=== PATIENT | male | born 1960 | race Two or more races ===

== ENCOUNTER 2019-03-17 04:46 | Inpatient (IN) | payer OTHER ==
[~2019-03-17] VITALS: Ht 157.5 cm; Wt 64.1 kg
[2019-03-17] MEDS ORDERED: METFORMIN HCL850 M1 ORAL (04:59)
[2019-03-17] MEDS ORDERED: ATORVASTATIN CA80 MG ORAL (04:59)
[2019-03-17 05:00] VITALS: BP 246/110
[2019-03-17] MEDS ORDERED: Morphine Sulfate 4mg/ml Inj (IV USE ONLY) IVP ONE (05:00)
[2019-03-17] MEDS ORDERED: LISINOPRIL10 MG ORAL (05:00)
[2019-03-17] MEDS ORDERED: METOPROLOL SUC100 MG ORAL (05:00)
[2019-03-17] MEDS ORDERED: Aspirin Baby 81mg ORAL ONE (05:00)
[2019-03-17] MEDS ORDERED: Metoprolol 5mg/5ml Inj IVP ONE (05:00)
--- NOTE | 2019-03-17 05:00 | NUR ---
ED Nurse Note: Patient walked into ED accompanied by c/o new onset left sided chest pain radiating to his upper back. rates his pain a 8/10 pain. BP 246/110. Pt c/o nausea. Has hx of heart attack last month, stent placed last 2008. No SOB. Breathing even and unlabored. Afebrile. Brother at bedside.
--- NOTE | 2019-03-17 05:05 | NUR ---
ED Nurse Note: IV line established. Blood collected and sent to lab.
--- NOTE | 2019-03-17 05:06 | Emergency Room Report ---
History of Present Illness General Chief Complaint: Chest Pain Source: Patient Present Illness HPI Disclaimer: Please note that this report is being documented using [employer] technology. This can lead to erroneous entry secondary to incorrect interpretation by the dictating instrument. HPI: 58-year-old male with a history of CAD status post stent 2008, hypertension , hyperlipidemia, diabetes presents for evaluation of chest pain. Symptom onset was probably 30 minutes ago. Chest pain woke him from sleep. Is over the left chest wall nonradiating. Associated with nausea, shortness of breath and diaphoresis. Pain is been constant since onset. Arrives with elevated blood pressures with systolics greater than 240 mmHg. States is similar sensation to his prior IA. Also complaining of an occipital headache and pressure over the back of his neck. Also complaining of pain over the left side of the mid back PMH: Hypertension, hyperlipidemia, diabetes, CAD PSH: The extent Allergies: None Social Hx: Denies smoking Allergies: Coded Allergies: No Known Allergies (Unverified , 03/17/19) Nursing Documentation-PMH Past Medical History: No History, Except For Hx Hypertension: Yes Hx Diabetes: Yes Review of Systems All Other Systems: negative except mentioned in HPI Physical Exam Vital Signs Date Time Temp Pulse Resp B/P (MAP) Pulse Ox O2 Delivery O2 Flow Rate FiO2 03/17/19 04:54 97.3 109 19 246/110 (155) 100 Room Air General: Awake and alert, anxious and uncomfortable appearing, hypertensive HEENT: NC/AT. EOMI. Neck: Supple, trachea midline Chest Wall: No tenderness, no deformity Cardiovascular: Tachycardic. S1 and S2 normal. No murmur appreciated Resp: Normal work of breathing. No cough, wheezing or crackles appreciated Abdomen: Abdomen is soft, nondistended. Nontender Skin: Intact. No abrasions, laceration or rash over the exposed skin MSK: Normal tone and bulk. Moving all extremities. No obvious deformity. Neuro: Awake and alert. Mentating appropriately. Medical Decision Making Diagnostic Impression: Primary Impression: Chest pain Additional Impression: Hypertensive urgency ER Course 58-year-old male with a history of CAD status post stent 2008 presents for evaluation of chest pain waking up from sleep approximately 30 minutes ago. Differential includes was not limited to ACS, angina, hypertensive urgency, hypertensive emergency, pneumothorax, pneumonia, bronchospasm, GERD. EKG obtained on arrival shows a right bundle branch block pattern in the precordial leads however there a deep ST segment depressions in the inferior and lateral portions. Will discuss with nearby cardiac center as there is elevation in aVR. Labs are pending. He was given metoprolol, aspirin, morphine Laboratory Tests Test 03/17/19 04:53 White Blood Count 9.1 K/UL (4.8-10.8) Red Blood Count 3.77 M/UL (4.70-6.10) L Hemoglobin 11.8 G/DL (14.2-18.0) L Hematocrit 34.3 % (42.0-52.0) L Mean Corpuscular Volume 91 FL (80-99) Mean Corpuscular Hemoglobin 31.3 PG (27.0-31.0) H Mean Corpuscular Hemoglobin Concent 34.4 G/DL (32.0-36.0) Red Cell Distribution Width 11.8 % (11.6-14.8) Platelet Count 288 K/UL (150-450) Mean Platelet Volume 6.6 FL (6.5-10.1) Neutrophils (%) (Auto) 65.7 % (45.0-75.0) Lymphocytes (%) (Auto) 21.6 % (20.0-45.0) Monocytes (%) (Auto) 8.1 % (1.0-10.0) Eosinophils (%) (Auto) 3.5 % (0.0-3.0) H Basophils (%) (Auto) 1.2 % (0.0-2.0) Sodium Level 139 MMOL/L (136-145) Potassium Level 4.0 MMOL/L (3.5-5.1) Chloride Level 104 MMOL/L (98-107) Carbon Dioxide Level 27 MMOL/L (21-32) Anion Gap 8 mmol/L (5-15) Blood Urea Nitrogen 24 mg/dL (7-18) H Creatinine 1.3 MG/DL (0.55-1.30) Estimate Glomerular Filtration Rate 56.5 mL/min (>60) Glucose Level 273 MG/DL (74-106) H Calcium Level 8.7 MG/DL (8.5-10.1) Phosphorus Level Pending Magnesium Level Pending Total Bilirubin 0.3 MG/DL (0.2-1.0) Aspartate Amino Transferase (AST) 18 U/L (15-37) Alanine Aminotransferase (ALT) 21 U/L (12-78) Alkaline Phosphatase 177 U/L (46-116) H Troponin I 0.000 ng/mL (0.000-0.056) Total Protein 7.5 G/DL (6.4-8.2) Albumin 3.0 G/DL (3.4-5.0) L Globulin 4.5 g/dL Albumin/Globulin Ratio 0.7 (1.0-2.7) L EKG Diagnostic Results EKG Time: 04:55 Rhythm: NSR Other Impression Sinus rhythm, slight right axis, possible ST elevation in aVR with right bundle branch block pattern in the precordial leads and ST depression in the inferior lateral leads Rhythm Strip Diag. Results Rhythm Strip Time: 04:55 EP Interpretation: yes Rate: 90s Rhythm: NSR Chest X-Ray Diagnostic Results Chest X-Ray Diagnostic Results : # of Views/Limited/Complete: 1 View Indication: Chest Pain EP Interpretation: Yes Interpretation: no consolidation, no effusion, no pneumothorax, no acute cardiopulmonary disease Impression: No acute disease Electronically Signed by: Electronically signed by Dr. Sid Tran Reevaluation Time: 05:41 Last Vital Signs Date Time Temp Pulse Resp B/P (MAP) Pulse Ox O2 Delivery O2 Flow Rate FiO2 03/17/19 04:54 97.3 109 19 246/110 (155) 100 Room Air Reevaluation Impression Chest x-ray unremarkable. Initial troponin is negative. Labs so far otherwise unremarkable. Will require a 3-hour troponin but the patient will be admitted for hypertensive urgency. His chest pain is currently a 2/10. Systolic pressures are down to 175 after receiving Nitropaste, metoprolol, morphine. He is received aspirin as well. Discussed with patient's transitional care nurse per his health plan, they are recommending admission to our hospital for chest pain and hypertension. Patient is agreeable to this treatment plan. Repeat EKG is largely unchanged. Some loss of R wave progression in the lateral leads V4 through V6 but overall morphology remains consistent. Repeat troponin is pending. Will admit to telemetry under panel physician. Disposition: ADMITTED INPATIENT Condition: Serious Referrals: NAKUL JOAQUIN,REFERRING (PCP) Sid Tran MD Mar 17, 2019 05:06
[2019-03-17 05:11] LABS: BASOPHILS % (AUTO) 1.2 % (0.0-2.0); EOSINOPHILS % (AUTO) 3.5 % (0.0-3.0); HEMATOCRIT 34.3 % (42.0-52.0); HEMOGLOBIN 11.8 G/DL (14.2-18.0); LYMPHOCYTES % (AUTO) 21.6 % (20.0-45.0); MEAN CORPUSCULAR VOLUME 91 FL (80-99); MONOCYTES % (AUTO) 8.1 % (1.0-10.0); NEUTROPHILS % (AUTO) 65.7 % (45.0-75.0); PLATELET COUNT 288 K/UL (150-450); RED BLOOD COUNT 3.77 M/UL (4.70-6.10); RED CELL DISTRIBUTION WIDTH 11.8 % (11.6-14.8); WHITE BLOOD COUNT 9.1 K/UL (4.8-10.8)
[2019-03-17] MEDS ORDERED: Nitroglycerin 2% oint pkt TOPIC ONE (05:15)
--- NOTE | 2019-03-17 05:15 | NUR ---
ED Nurse Note: Xray at bedside.
[2019-03-17 05:28] LABS: ANION GAP 8 mmol/L (5-15); BLOOD UREA NITROGEN 24 mg/dL (7-18); CALCIUM 8.7 MG/DL (8.5-10.1); CARBON DIOXIDE 27 MMOL/L (21-32); CHLORIDE 104 MMOL/L (98-107); CREATININE 1.3 MG/DL (0.55-1.30); SODIUM 139 MMOL/L (136-145)
[2019-03-17 05:32] LABS: ALANINE AMINOTRANSFERASE 21 U/L (12-78); ALBUMIN/GLOBULIN RATIO 0.7 (1.0-2.7); ALKALINE PHOSPHATASE 177 U/L (46-116); ASPARTATE AMINO TRANSFERASE 18 U/L (15-37); BILIRUBIN,TOTAL 0.3 MG/DL (0.2-1.0)
[2019-03-17 05:54] LABS: PHOSPHORUS 3.5 MG/DL (2.5-4.9)
[2019-03-17 06:09] VITALS: BP 144/76
--- NOTE | 2019-03-17 06:43 | NUR ---
ED Nurse Note: Repeat troponin done and sent to lab.
--- NOTE | 2019-03-17 07:09 | NUR ---
HAND-OFF: Report given to Yvonne HAYWOOD. Endorsed plan of care. No new order at this time.
--- NOTE | 2019-03-17 07:44 | NUR ---
ED Nurse Note: Reports given to YOBANY Castro
[2019-03-17 08:00] VITALS: BP 157/66
--- NOTE | 2019-03-17 08:16 | NUR ---
NURSE NOTES: HANDOFF RECEIVED FROM SE MULU LIU RN. PATIENT ARRIVED TO THE FLOOR. PLACED ON JAVA J2EE LEAD, ORIENTED TO ROOM AND CALL LIGHT. BED IN THE LOW AND LOCKED POSITION WITH CALL LIGHT WITHIN REACH. VITALS STABLE. WILL CONTINUE TO MONITOR PATIENT.
[2019-03-17] MEDS ORDERED: Nitroglycerin Subl 0.4mg tab SL PRN (08:30)
[2019-03-17] MEDS ORDERED: Lisinopril 10mg tab ORAL SCH (09:00)
--- NOTE | 2019-03-17 09:45 | History and Physical Report ---
DATE OF ADMISSION: 03/17/2019 REASON FOR ADMISSION: 1. Hypertensive urgency. 2. Chest pain. HISTORY OF PRESENT ILLNESS: The patient is a 58-year-old gentleman with known hypertension, hyperlipidemia, and diabetes, who was admitted through the emergency room overnight for further evaluation and care for chest pain. The patient states he has not been taking his medications for several days and started developing headaches and neck pain with extremely high blood pressure. As such, he presented to the emergency room for further evaluation and care with systolic blood pressure was 240. He states that he had similar sensation prior to his previous TX. PAST MEDICAL HISTORY: 1. Hypertension. 2. Hyperlipidemia. 3. Diabetes mellitus. 4. Coronary artery disease. PAST SURGICAL HISTORY: PCI. ALLERGIES: No known drug allergies. SOCIAL HISTORY: Denies any tobacco, alcohol, or illicit drug use. FAMILY HISTORY: Positive for hypertension and diabetes. PHYSICAL EXAMINATION: VITAL SIGNS: Blood pressure 157/72, respiratory rate 13, pulse 80, temperature 97.6, and 99% oxygen saturation on room air. GENERAL: The patient is awake and alert, not in distress. HEENT: Extraocular muscles are intact. No lymphadenopathy. Oropharyngeal mucosa is clear, dry, and intact. CARDIOVASCULAR: S1, S2. No rubs or gallops. Regular rate. PULMONARY: Clear to auscultation bilaterally. No rales, rhonchi, or wheezes. ABDOMEN: Nondistended and nontender. EXTREMITIES: No edema noted. LABORATORY DATA: Labs dated 03/17/2019 - white cell count 9.1, platelet count 288,000, and hemoglobin 11.8. Sodium 139, potassium 4, creatinine 1.3, phosphorus 3.5, magnesium 2.4. Troponin 0. ASSESSMENT AND PLAN: 1. Acute coronary syndrome, chest pain secondary to hypertensive urgency. At this time, cardiology has been consulted for further evaluation and management. We will continue aspirin and beta eve. 2. Hypertensive urgency. The patient is noncompliant with medications. We will re-initiate home dose medications. 3. Diabetes mellitus. We will continue low-carbohydrate diet with insulin and metformin. We are monitoring Accu-Cheks. 4. Hyperlipidemia. The patient is on Lipitor. 5. Headache could be secondary to hypertensive urgency. We will continue to monitor neck and headache pain with improvement in blood pressure. If further testing warrants, we will proceed. 6. DVT prophylaxis with Lovenox. 7. GI prophylaxis with famotidine. Esdras Crawley MD DR: BEBO JOB#: [id number] CC:
[2019-03-17] MEDS: Metoprolol Succinate XL 100mg tab ORAL SCH (09:52)
[2019-03-17] MEDS: Aspirin Baby 81mg ORAL SCH (09:53)
[2019-03-17] MEDS: Enoxaparin 40mg Inj SUBQ SCH (09:55)
--- NOTE | 2019-03-17 09:55 | Cardiac Electrophysiology PN ---
Subjective Subjective [id number] Objective Last 24 Hour Vital Signs Date Time Temp Pulse Resp B/P (MAP) Pulse Ox O2 Delivery O2 Flow Rate FiO2 03/17/19 08:00 97.3 81 19 157/66 (96) 97 03/17/19 07:45 97.6 80 13 157/72 99 Room Air 03/17/19 06:09 98.5 78 17 144/76 97 Room Air 03/17/19 05:34 97.3 03/17/19 05:15 246/110 03/17/19 05:02 125 246/110 03/17/19 05:00 109 19 Room Air 03/17/19 05:00 97.3 109 19 246/110 100 Room Air 03/17/19 04:54 97.3 109 19 246/110 (155) 100 Room Air Intake and Output 03/16/19 03/17/19 19:00 07:00 Intake Total 100 ml Balance 100 ml Intake Oral 100 ml Laboratory Tests Test 03/17/19 04:53 03/17/19 06:41 White Blood Count 9.1 K/UL (4.8-10.8) Red Blood Count 3.77 M/UL (4.70-6.10) L Hemoglobin 11.8 G/DL (14.2-18.0) L Hematocrit 34.3 % (42.0-52.0) L Mean Corpuscular Volume 91 FL (80-99) Mean Corpuscular Hemoglobin 31.3 PG (27.0-31.0) H Mean Corpuscular Hemoglobin Concent 34.4 G/DL (32.0-36.0) Red Cell Distribution Width 11.8 % (11.6-14.8) Platelet Count 288 K/UL (150-450) Mean Platelet Volume 6.6 FL (6.5-10.1) Neutrophils (%) (Auto) 65.7 % (45.0-75.0) Lymphocytes (%) (Auto) 21.6 % (20.0-45.0) Monocytes (%) (Auto) 8.1 % (1.0-10.0) Eosinophils (%) (Auto) 3.5 % (0.0-3.0) H Basophils (%) (Auto) 1.2 % (0.0-2.0) Sodium Level 139 MMOL/L (136-145) Potassium Level 4.0 MMOL/L (3.5-5.1) Chloride Level 104 MMOL/L (98-107) Carbon Dioxide Level 27 MMOL/L (21-32) Anion Gap 8 mmol/L (5-15) Blood Urea Nitrogen 24 mg/dL (7-18) H Creatinine 1.3 MG/DL (0.55-1.30) Estimat Glomerular Filtration Rate 56.5 mL/min (>60) Glucose Level 273 MG/DL (74-106) H Calcium Level 8.7 MG/DL (8.5-10.1) Phosphorus Level 3.5 MG/DL (2.5-4.9) Magnesium Level 2.4 MG/DL (1.8-2.4) Total Bilirubin 0.3 MG/DL (0.2-1.0) Aspartate Amino Transf (AST/SGOT) 18 U/L (15-37) Alanine Aminotransferase (ALT/SGPT) 21 U/L (12-78) Alkaline Phosphatase 177 U/L (46-116) H Troponin I 0.000 ng/mL (0.000-0.056) 0.001 ng/mL (0.000-0.056) Total Protein 7.5 G/DL (6.4-8.2) Albumin 3.0 G/DL (3.4-5.0) L Globulin 4.5 g/dL Albumin/Globulin Ratio 0.7 (1.0-2.7) L Microbiology Date/Time Source Procedure Growth Status 03/17/19 07:28 Rectum Received Steven Garces MD Mar 17, 2019 09:55
[2019-03-17] MEDS: Morphine Sulfate 2mg/ml Inj(IV/IM USE ONLY) IVP PRN ×3 (09:58→19:31)
[2019-03-17] MEDS ORDERED: cloNIDine 0.2mg Tab ORAL PRN (10:00)
[2019-03-17] MEDS ORDERED: Lexiscan 0.4mg/5ml syringe IV SCH (10:00)
--- NOTE | 2019-03-17 10:00 | Diagnostic Imaging Report ---
Indication: Chest pain Comparison: None A single view chest radiograph was obtained. Findings: Cardiomediastinal appearance is within normal limits for age. The lungs are clear. Pulmonary vascularity is appropriate. The diaphragmatic contour is smooth and costophrenic angles are sharp. No pleural effusions are identified. The bones are unremarkable. Impression: No acute findings
[2019-03-17] MEDS ORDERED: Lexiscan 0.4mg/5ml syringe IV PRN (10:15)
[2019-03-17] MEDS: Lisinopril 10mg tab ORAL SCH ×2 (11:13→17:27)
[2019-03-17 11:52] VITALS: BP 142/72
[2019-03-17] MEDS: NovoLOG Insulin Flexpen SUBQ SCH ×3 (11:55→20:47)
--- NOTE | 2019-03-17 15:00 | Consultation ---
DATE OF CONSULTATION: 03/17/2019 CARDIOLOGY CONSULTATION CONSULTING PHYSICIAN: Steven Garces M.D. REFERRING PHYSICIAN: Esdras Crawley M.D. REASON FOR CONSULTATION: Chest pain. HISTORY OF PRESENT ILLNESS: The patient is a 58-year-old gentleman with history of hypertension, diabetes, and hyperlipidemia, who states that he had a stent in 2008 at [facility]. The patient presented to the emergency room complaining of chest pain lasting for 30 minutes of waking up from sleep. He also has nausea and diaphoresis. The patient also checked his blood pressure at home and noticed it has been more than 240s. The patient presented to the emergency room and a Cardiology consultation was obtained for further evaluation. In the ER, blood pressure was 246/110 with a pulse of 109. At the time of my evaluation, the patient denies any chest pain or shortness of breath. REVIEW OF SYSTEMS: Negative other than what was mentioned in history of present illness. PAST MEDICAL HISTORY: As mentioned above. FAMILY HISTORY: Noncontributory. SOCIAL HISTORY: He lives at home. Does not smoke or drink alcohol. PHYSICAL EXAMINATION: VITAL SIGNS: Show blood pressure of 157/66, pulse is 81, respirations 18, temperature 97.3. HEAD AND NECK: Shows no JVD. LUNGS: Clear. CARDIOVASCULAR: Regular S1 and S2 with no gallop or murmur. ABDOMEN: Soft. EXTREMITIES: No pitting edema. LABORATORY AND DIAGNOSTIC DATA: His labs show white count of 9.7, hemoglobin 11.8, hematocrit 34.3, and platelet count is 288. Sodium 139, potassium 4.0, BUN of 24, creatinine 1.3, glucose 273. Troponin negative x2. His EKG showed sinus rhythm with complete right bundle-branch block. ASSESSMENT AND PLAN: 1. Chest pain with history of coronary artery disease, history of questionable prior stent placement. The patient will be ruled out for myocardial infarction by serial cardiac enzymes. His EKG shows sinus rhythm with right bundle-branch block and left anterior fascicular block. Keep the patient on Lipitor 80 mg daily, aspirin 81 mg daily, and Toprol 100 mg daily. We will schedule the patient for nuclear stress test for further evaluation. 2. Essential hypertension, on Toprol-XL 100 mg daily. Increase lisinopril to 10 mg b.i.d. and add p.r.n. clonidine to his medical regimen. An echocardiogram will also be ordered for further management. 3. Diabetes. 4. Hyperlipidemia, on Lipitor. Thank you very much for allowing me to participate in the care of this patient. Please do not hesitate to contact me for any questions regarding my evaluation. Steven Garces M.D. DR: FRANSICO JOB#: [id number] CC:
--- NOTE | 2019-03-17 15:25 | Cardiology Report ---
APPROVED REPORT EXAM: Two-dimensional and M-mode echocardiogram with Doppler and color Doppler. INDICATION Chest Pain M-Mode DIMENSIONS IVSd1.0 (0.7-1.1cm)Left Atrium (MM)3.9 (1.6-4.0cm) LVDd3.9 (3.5-5.6cm)Aortic Root3.0 (2.0-3.7cm) PWd1.0 (0.7-1.1cm)Aortic Cusp Exc.1.8 (1.5-2.0cm) LVDs2.2 (2.5-4.0cm) PWs1.6 cm Normal left ventricular chamber size, normal systolic function and wall motion. Left ventricular ejection fraction estimated to be 60-65 %. No evidence of pericardial effusion. Left atrial size at upper limits of normal. Right cardiac chamber sizes are within normal limits. Focal aortic valve sclerosis with adequate cusp excursion. Thickened mitral valve leaflets with normal excursion. Mitral annulus and aortic root calcification. Normal pulmonic valve structure. Normal tricuspid valve structure. IVC at normal size with physiologic collapse. A color flow and spectral Doppler study was performed and revealed: Trace mitral regurgitation. Mitral diastolic velocities suggest reduced left ventricular relaxation c/w mild LV diastolic dysfunction (Grade I). Trace tricuspid regurgitation. Tricuspid systolic velocities suggests peak right ventricular systolic pressure of 25 mmHg. Trace pulmonic regurgitation present.
[2019-03-17 16:00] VITALS: BP 117/72
--- NOTE | 2019-03-17 16:11 | NUR ---
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 97.3 HR 109 RR 19 B/P 246/110 BUN 24 CR 1.3 TROP 0.000 CXR= NEGATIVE 2D ECHO= EF 60-65% IS: ASA PO MORPHINE SULFATE IV LOPRESSOR IV NITRO TOPICAL PLACED ON OBSERVATION OBSERVATION STATUS DCP RETURN HOME Addendum: 03/17/19 at 1616 by ERICA FAJARDO RN RN PT ADMITTED IN PATIENT.
--- NOTE | 2019-03-17 17:29 | NUR ---
NURSE NOTES: PATIENT SAYS PAIN IS NOW 9/10, MORPHINE NOT DUE UNTIL 7:40 PATIENT SAYS THE PAIN IS IN HIS BACK AND NECK. GAVE NITROGLYCERINE PAIN MAY BE REFERRED ANGINA PAIN. PATIENT STATES HE HAS A HISTORY OF ANGINA.
--- NOTE | 2019-03-17 19:27 | NUR ---
HAND-OFF: Report given to YOBANY HARRIS.
--- NOTE | 2019-03-17 19:30 | NUR ---
NURSE NOTES: Received patient from day shift RN. Patient in bed, on room air, no signs of respiratory distress. Bed in low position, locked, bed alarm on, call light within reach. 20 gauge iv on right ac intact, patent, no signs of infiltration.
[2019-03-17 20:00] VITALS: BP 106/64
--- NOTE | 2019-03-17 20:00 | NUR ---
NURSE NOTES: Patient was given morphine for pain earlier, patient states he feels better, 5/10. Explained to patient that he cannot have any caffeine, tea, or chocolate because he will be having lexiscan test in morning. He also will not be able to eat anything after midnight. Patient verbalized understanding.
[2019-03-17] MEDS: Atorvastatin 80mg tab ORAL SCH (20:41)
[2019-03-18] VITALS (7 sets, daily range): BP systolic 118–174; BP diastolic 60–87
[2019-03-18] MEDS: Morphine Sulfate 2mg/ml Inj(IV/IM USE ONLY) IVP PRN ×3 (02:52→20:24)
[2019-03-18] MEDS: NovoLOG Insulin Flexpen SUBQ SCH ×4 (06:30→20:27)
[2019-03-18 06:35] LABS: BASOPHILS % (AUTO) 0.8 % (0.0-2.0); EOSINOPHILS % (AUTO) 2.4 % (0.0-3.0); HEMATOCRIT 28.1 % (42.0-52.0); HEMOGLOBIN 9.5 G/DL (14.2-18.0); LYMPHOCYTES % (AUTO) 23.8 % (20.0-45.0); MEAN CORPUSCULAR VOLUME 93 FL (80-99); MONOCYTES % (AUTO) 8.8 % (1.0-10.0); NEUTROPHILS % (AUTO) 64.2 % (45.0-75.0); PLATELET COUNT 235 K/UL (150-450); RED BLOOD COUNT 3.02 M/UL (4.70-6.10); RED CELL DISTRIBUTION WIDTH 11.9 % (11.6-14.8)
[2019-03-18 07:17] LABS: ANION GAP 9 mmol/L (5-15); BLOOD UREA NITROGEN 30 mg/dL (7-18); CALCIUM 8.2 MG/DL (8.5-10.1); CARBON DIOXIDE 26 MMOL/L (21-32); CHLORIDE 106 MMOL/L (98-107); CREATININE 1.8 MG/DL (0.55-1.30); POTASSIUM 4.6 MMOL/L (3.5-5.1); SODIUM 141 MMOL/L (136-145)
--- NOTE | 2019-03-18 07:30 | NUR ---
HAND-OFF: Report given to Carli HAYWOOD. Plan of care endorsed.
--- NOTE | 2019-03-18 07:35 | NUR ---
NURSE NOTES: Received patient in bed awake and alert. no complain of pain or discomfort. NPO for olga scan today. patient is aware of the procedure. fall precautions in place. call maciel within patients reach will follow.
--- NOTE | 2019-03-18 08:40 | Nephrology Progress Note ---
Assessment/Plan Assessment/Plan: ASSESSMENT AND PLAN: 1. Acute coronary syndrome, chest pain secondary to hypertensive urgency. - stress test today 2. Hypertensive urgency. The patient is noncompliant with medications. - BP improved, monitor 3. Diabetes mellitus. -continue low-carbohydrate diet with insulin and metformin. 4. Hyperlipidemia. The patient is on Lipitor. 5. Headache could be secondary to hypertensive urgency. -continue to monitor neck and headache pain with improvement in blood pressure. 6. DVT prophylaxis with Lovenox. 7. GI prophylaxis with famotidine. 8. TARYN- monitor Cr as increased post increase in Lisinopril Subjective Date patient seen: Mar 18, 2019 Time patient seen: 08:38 Allergies: Coded Allergies: No Known Allergies (Unverified , 03/17/19) Subjective Patient having stress test today Objective Last 24 Hour Vital Signs Date Time Temp Pulse Resp B/P (MAP) Pulse Ox O2 Delivery O2 Flow Rate FiO2 03/18/19 08:00 98.6 66 19 159/73 (101) 100 03/18/19 05:33 69 118/73 (88) 03/18/19 04:22 174/87 03/18/19 04:00 98.5 78 18 174/87 (116) 99 03/18/19 04:00 73 03/18/19 00:00 98.9 78 18 139/78 (98) 98 03/18/19 00:00 75 03/17/19 21:00 Room Air Room Air 03/17/19 21:00 Room Air Room Air 03/17/19 20:00 74 03/17/19 20:00 97.2 54 18 106/64 (78) 97 03/17/19 17:27 117/72 03/17/19 16:00 75 03/17/19 16:00 99.1 72 18 117/72 (87) 94 03/17/19 12:00 79 03/17/19 11:52 99.5 82 18 142/72 (95) 99 03/17/19 11:13 155/76 03/17/19 10:35 Room Air 03/17/19 09:53 157/66 03/17/19 09:52 81 157/66 03/17/19 09:00 Room Air Intake and Output 03/17/19 03/18/19 19:00 07:00 Intake Total 600 ml Balance 600 ml Intake Oral 600 ml # Voids 3 Laboratory Tests 03/18/19 05:37: White Blood Count 8.0, Red Blood Count 3.02L, Hemoglobin 9.5L, Hematocrit 28.1L , Mean Corpuscular Volume 93, Mean Corpuscular Hemoglobin 31.3H, Mean Corpuscular Hemoglobin Concent 33.7, Red Cell Distribution Width 11.9, Platelet Count 235, Mean Platelet Volume 7.0, Neutrophils (%) (Auto) 64.2, Lymphocytes (% ) (Auto) 23.8, Monocytes (%) (Auto) 8.8, Eosinophils (%) (Auto) 2.4, Basophils ( %) (Auto) 0.8, Sodium Level 141, Potassium Level 4.6, Chloride Level 106, Carbon Dioxide Level 26, Anion Gap 9, Blood Urea Nitrogen 30H, Creatinine 1.8H, Estimat Glomerular Filtration Rate 38.8, Glucose Level 189H, Calcium Level 8.2L Height (Feet): 5 Height (Inches): 2.00 Weight (Pounds): 141 Esdras Crawley MD Mar 18, 2019 08:40
[2019-03-18] MEDS: Metoprolol Succinate XL 100mg tab ORAL SCH (09:00)
[2019-03-18] MEDS: Aspirin Baby 81mg ORAL SCH (09:07)
[2019-03-18] MEDS: Enoxaparin 40mg Inj SUBQ SCH (09:11)
[2019-03-18] MEDS: Lisinopril 10mg tab ORAL SCH ×2 (09:15→17:11)
--- NOTE | 2019-03-18 10:59 | Cardiac Electrophysiology PN ---
Assessment/Plan Assessment/Plan 1. Chest pain with history of coronary artery disease, history of questionable prior stent placement. Ruled out for myocardial infarction by serial cardiac enzymes. His EKG shows sinus rhythm with right bundle-branch block and left anterior fascicular block. Keep the patient on Lipitor 80 mg daily, aspirin 81 mg daily, and Toprol 100 mg daily. Nuclear stress test today pending 2. Essential hypertension, on Toprol-XL 100 mg daily, lisinopril to 10 mg b.i.d. and p.r.n. clonidine to his medical regimen. Echocardiogram will also be ordered for further management. 3. Diabetes. 4. Hyperlipidemia, on Lipitor. Subjective Subjective No CP or SOB.In SR with BBB Objective Last 24 Hour Vital Signs Date Time Temp Pulse Resp B/P (MAP) Pulse Ox O2 Delivery O2 Flow Rate FiO2 03/18/19 09:15 159/73 03/18/19 09:00 65 159/73 03/18/19 09:00 Room Air Room Air 03/18/19 08:00 65 03/18/19 08:00 98.6 66 19 159/73 (101) 100 03/18/19 05:33 69 118/73 (88) 03/18/19 04:22 174/87 03/18/19 04:00 98.5 78 18 174/87 (116) 99 03/18/19 04:00 73 03/18/19 00:00 98.9 78 18 139/78 (98) 98 03/18/19 00:00 75 03/17/19 21:00 Room Air Room Air 03/17/19 21:00 Room Air Room Air 03/17/19 20:00 74 03/17/19 20:00 97.2 54 18 106/64 (78) 97 03/17/19 17:27 117/72 03/17/19 16:00 75 03/17/19 16:00 99.1 72 18 117/72 (87) 94 03/17/19 12:00 79 03/17/19 11:52 99.5 82 18 142/72 (95) 99 03/17/19 11:13 155/76 Intake and Output 03/17/19 03/18/19 19:00 07:00 Intake Total 600 ml Balance 600 ml Intake Oral 600 ml # Voids 3 Laboratory Tests Test 03/18/19 05:37 White Blood Count 8.0 K/UL (4.8-10.8) Red Blood Count 3.02 M/UL (4.70-6.10) L Hemoglobin 9.5 G/DL (14.2-18.0) L Hematocrit 28.1 % (42.0-52.0) L Mean Corpuscular Volume 93 FL (80-99) Mean Corpuscular Hemoglobin 31.3 PG (27.0-31.0) H Mean Corpuscular Hemoglobin Concent 33.7 G/DL (32.0-36.0) Red Cell Distribution Width 11.9 % (11.6-14.8) Platelet Count 235 K/UL (150-450) Mean Platelet Volume 7.0 FL (6.5-10.1) Neutrophils (%) (Auto) 64.2 % (45.0-75.0) Lymphocytes (%) (Auto) 23.8 % (20.0-45.0) Monocytes (%) (Auto) 8.8 % (1.0-10.0) Eosinophils (%) (Auto) 2.4 % (0.0-3.0) Basophils (%) (Auto) 0.8 % (0.0-2.0) Sodium Level 141 MMOL/L (136-145) Potassium Level 4.6 MMOL/L (3.5-5.1) Chloride Level 106 MMOL/L (98-107) Carbon Dioxide Level 26 MMOL/L (21-32) Anion Gap 9 mmol/L (5-15) Blood Urea Nitrogen 30 mg/dL (7-18) H Creatinine 1.8 MG/DL (0.55-1.30) H Estimat Glomerular Filtration Rate 38.8 mL/min (>60) Glucose Level 189 MG/DL (74-106) H Calcium Level 8.2 MG/DL (8.5-10.1) L Microbiology Date/Time Source Procedure Growth Status 03/17/19 07:28 Rectum Received Objective HEAD AND NECK: No JVD. LUNGS: Clear. CARDIOVASCULAR: Regular S1 and S2 with no gallop or murmur. ABDOMEN: Soft. EXTREMITIES: No pitting edema. Steven Garces MD Mar 18, 2019 10:58
--- NOTE | 2019-03-18 13:20 | NUR ---
*-* INSURANCE *-* ALL CLINICALS AND REVIEWS HAVE BEEN FAXED TO: [facility] Ref#[id number] No [facility]#[phone] fax#[phone]
--- NOTE | 2019-03-18 13:30 | NUR ---
NURSE NOTES: Patient S/P stress test. tolerated procedure. will follow.
--- NOTE | 2019-03-18 13:40 | NUR ---
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 98.0 HR 66 RR 20 B/P 159/73 BUN 30 CR 1.8 IS: METFORMIN PO ZESTRIL PO LOVENOX SUBC TELE STATUS
--- NOTE | 2019-03-18 15:08 | Cardiology Report ---
APPROVED REPORT EKG Measurement Heart [id number] MO [id number] [id number] Normal sinus rhythm Left axis deviation Right bundle branch block Possible Lateral infarct, age undetermined Abnormal ECG
--- NOTE | 2019-03-18 15:09 | Cardiology Report ---
APPROVED REPORT EKG Measurement Heart [id number] AR [id number] [id number] Normal sinus rhythm Right bundle branch block Abnormal ECG
--- NOTE | 2019-03-18 15:30 | NUR ---
NM Myocardial Perfusion scan complete.
--- NOTE | 2019-03-18 16:52 | Diagnostic Imaging Report ---
Indications: Chest pain Technique: Single day single isotope protocol utilized. Initially, resting images obtained using IV administration and 0.7 millicuries 99M technetium Myoview. Subsequently, patient underwent lexiscan stress testing. See cardiology report for details. During Lexiscan infusion, IV administration 30.7 mCi 99 M technetium Myoview. SPECT and planar images obtained. SPECT images gated to 8 phases of the cardiac cycle were also obtained, and reformatted into cine images for evaluation of ejection fraction. Comparison: none Findings: Per cardiology report, patient experienced no chest pain. Per cardiology report, resting EKG demonstrates normal sinus rhythm with right bundle-branch block. No significant ST changes demonstrated during infusion. Imaging demonstrates normal poststress perfusion, no fixed nor reversible post stress perfusion defects. Normal cardiac chamber size. Calculated post stress ejection fraction 67% Impression: Nonischemic clinical response to pharmacologic stress, per cardiology report Nonischemic electrocardiographic response to pharmacologic stress, per cardiology report No imaging findings to suggest ischemia, at level of stress achieved. Calculated post stress ejection fra67%
--- NOTE | 2019-03-18 19:28 | NUR ---
HAND-OFF: Report given to Veronika Velazquez. Patient stable. Plan of care endorsed.
--- NOTE | 2019-03-18 19:30 | NUR ---
OBTAINED REPORT FROM LILA HAYWOOD. PT RESTING IN BED.
[2019-03-18] MEDS: Atorvastatin 80mg tab ORAL SCH (20:07)
[2019-03-19] VITALS: BP 163/90
[2019-03-19] MEDS: Morphine Sulfate 2mg/ml Inj(IV/IM USE ONLY) IVP PRN ×2 (00:43→05:04)
[2019-03-19 04:15] VITALS: BP 151/90
[2019-03-19] MEDS: NovoLOG Insulin Flexpen SUBQ SCH ×4 (06:17→22:00)
[2019-03-19 06:50] LABS: BASOPHILS % (AUTO) 0.7 % (0.0-2.0); EOSINOPHILS % (AUTO) 1.9 % (0.0-3.0); HEMATOCRIT 29.8 % (42.0-52.0); HEMOGLOBIN 10.2 G/DL (14.2-18.0); MEAN CORPUSCULAR VOLUME 91 FL (80-99); MONOCYTES % (AUTO) 8.5 % (1.0-10.0); NEUTROPHILS % (AUTO) 71.9 % (45.0-75.0); PLATELET COUNT 246 K/UL (150-450); RED BLOOD COUNT 3.26 M/UL (4.70-6.10); RED CELL DISTRIBUTION WIDTH 11.8 % (11.6-14.8); WHITE BLOOD COUNT 8.3 K/UL (4.8-10.8)
[2019-03-19 07:12] LABS: ANION GAP 9 mmol/L (5-15); BLOOD UREA NITROGEN 26 mg/dL (7-18); CALCIUM 8.5 MG/DL (8.5-10.1); CARBON DIOXIDE 26 MMOL/L (21-32); CHLORIDE 105 MMOL/L (98-107); CREATININE 1.4 MG/DL (0.55-1.30); POTASSIUM 4.2 MMOL/L (3.5-5.1); SODIUM 140 MMOL/L (136-145)
--- NOTE | 2019-03-19 07:15 | NUR ---
GAVE FULL REPORT TO XAVIER. PT RESTING IN BED FREE FROM APPARENT DISTRESS.
--- NOTE | 2019-03-19 07:46 | NUR ---
NURSE NOTES: pt. awake and talking daughter is at bedside. pt is in constant neck pain. Pt on realtime reporter, no signs of cardiac or respiratory distress at this time. Bed is in lowest position and locked. Call light within reach. Will continue to monitor pt and follow plans of care.
[2019-03-19 08:00] VITALS: BP 208/101
--- NOTE | 2019-03-19 08:36 | Cardiac Electrophysiology PN ---
Assessment/Plan Assessment/Plan 1. Chest pain with history of coronary artery disease, history of questionable prior stent placement. Ruled out for myocardial infarction by serial cardiac enzymes. His EKG shows sinus rhythm with right bundle-branch block and left anterior fascicular block. Keep the patient on Lipitor 80 mg daily, aspirin 81 mg daily, and Toprol 100 mg daily. Nuclear stress test showed no ischemia 2. Essential hypertension, on Toprol-XL 100 mg daily, lisinopril to 10 mg b.i.d. and p.r.n. clonidine to his medical regimen. Echocardiogram will also be ordered for further management. 3. Diabetes. 4. Hyperlipidemia, on Lipitor. JOSIAH RN and Dr Crawley Subjective Subjective No CP or SOB.In SR with BBB. Stress test was nonischemic. Says has low back pain that radiates to his leg and his head! at bedside Objective Last 24 Hour Vital Signs Date Time Temp Pulse Resp B/P (MAP) Pulse Ox O2 Delivery O2 Flow Rate FiO2 03/19/19 04:29 69 03/19/19 04:15 98.0 69 20 151/90 (110) 98 03/19/19 00:00 97.9 70 18 163/90 (114) 97 03/19/19 00:00 69 03/18/19 20:00 65 03/18/19 20:00 98.6 72 20 153/70 (97) 95 03/18/19 20:00 Room Air Room Air 03/18/19 17:11 161/60 03/18/19 16:00 98.7 67 20 161/60 (93) 99 03/18/19 16:00 67 03/18/19 12:00 98.0 66 20 127/75 (92) 98 03/18/19 12:00 63 03/18/19 09:15 159/73 03/18/19 09:00 65 159/73 03/18/19 09:00 Room Air Room Air Intake and Output 03/18/19 03/19/19 19:00 07:00 Intake Total 140 ml Output Total 500 ml 1000 ml Balance -360 ml -1000 ml Intake Oral 140 ml Output Urine Total 500 ml 1000 ml # Voids 3 Laboratory Tests Test 03/19/19 05:24 White Blood Count 8.3 K/UL (4.8-10.8) Red Blood Count 3.26 M/UL (4.70-6.10) L Hemoglobin 10.2 G/DL (14.2-18.0) L Hematocrit 29.8 % (42.0-52.0) L Mean Corpuscular Volume 91 FL (80-99) Mean Corpuscular Hemoglobin 31.3 PG (27.0-31.0) H Mean Corpuscular Hemoglobin Concent 34.3 G/DL (32.0-36.0) Red Cell Distribution Width 11.8 % (11.6-14.8) Platelet Count 246 K/UL (150-450) Mean Platelet Volume 6.7 FL (6.5-10.1) Neutrophils (%) (Auto) 71.9 % (45.0-75.0) Lymphocytes (%) (Auto) 17.0 % (20.0-45.0) L Monocytes (%) (Auto) 8.5 % (1.0-10.0) Eosinophils (%) (Auto) 1.9 % (0.0-3.0) Basophils (%) (Auto) 0.7 % (0.0-2.0) Sodium Level 140 MMOL/L (136-145) Potassium Level 4.2 MMOL/L (3.5-5.1) Chloride Level 105 MMOL/L (98-107) Carbon Dioxide Level 26 MMOL/L (21-32) Anion Gap 9 mmol/L (5-15) Blood Urea Nitrogen 26 mg/dL (7-18) H Creatinine 1.4 MG/DL (0.55-1.30) H Estimat Glomerular Filtration Rate 51.9 mL/min (>60) Glucose Level 161 MG/DL (74-106) H Calcium Level 8.5 MG/DL (8.5-10.1) Microbiology Date/Time Source Procedure Growth Status 03/17/19 07:28 Rectum Received Objective HEAD AND NECK: No JVD. LUNGS: Clear. CARDIOVASCULAR: Regular S1 and S2 with no gallop or murmur. ABDOMEN: Soft. EXTREMITIES: No pitting edema. Steven Garces MD Mar 19, 2019 08:36
--- NOTE | 2019-03-19 08:51 | Nephrology Progress Note ---
Assessment/Plan Assessment/Plan: ASSESSMENT AND PLAN: 1. Acute coronary syndrome, chest pain secondary to hypertensive urgency. - stress test negative 2. Hypertensive urgency. The patient is noncompliant with medications. - Resolved 3. Diabetes mellitus. -continue low-carbohydrate diet with insulin and metformin. 4. Hyperlipidemia. The patient is on Lipitor. 5. Headache could be secondary to hypertensive urgency. -continue to monitor neck and headache pain - add robaxin, patient not febrile and WBC normal - Neuro consulted, CT Head ordered 6. DVT prophylaxis with Lovenox. 7. GI prophylaxis with famotidine. 8. TARYN- monitor Cr as increased post increase in Lisinopril - Cr improved Subjective Date patient seen: Mar 19, 2019 Time patient seen: 08:47 ROS Limited/Unobtainable: No Allergies: Coded Allergies: No Known Allergies (Unverified , 03/17/19) Subjective Patient stress test neg. Still having neck back and leg pain Objective Last 24 Hour Vital Signs Date Time Temp Pulse Resp B/P (MAP) Pulse Ox O2 Delivery O2 Flow Rate FiO2 03/19/19 04:29 69 03/19/19 04:15 98.0 69 20 151/90 (110) 98 03/19/19 00:00 97.9 70 18 163/90 (114) 97 03/19/19 00:00 69 03/18/19 20:00 65 03/18/19 20:00 98.6 72 20 153/70 (97) 95 03/18/19 20:00 Room Air Room Air 03/18/19 17:11 161/60 03/18/19 16:00 98.7 67 20 161/60 (93) 99 03/18/19 16:00 67 03/18/19 12:00 98.0 66 20 127/75 (92) 98 03/18/19 12:00 63 03/18/19 09:15 159/73 03/18/19 09:00 65 159/73 03/18/19 09:00 Room Air Room Air Intake and Output 03/18/19 03/19/19 19:00 07:00 Intake Total 140 ml Output Total 500 ml 1000 ml Balance -360 ml -1000 ml Intake Oral 140 ml Output Urine Total 500 ml 1000 ml # Voids 3 Laboratory Tests 03/19/19 05:24: White Blood Count 8.3, Red Blood Count 3.26L, Hemoglobin 10.2L, Hematocrit 29.8L , Mean Corpuscular Volume 91, Mean Corpuscular Hemoglobin 31.3H, Mean Corpuscular Hemoglobin Concent 34.3, Red Cell Distribution Width 11.8, Platelet Count 246, Mean Platelet Volume 6.7, Neutrophils (%) (Auto) 71.9, Lymphocytes (% ) (Auto) 17.0L, Monocytes (%) (Auto) 8.5, Eosinophils (%) (Auto) 1.9, Basophils (%) (Auto) 0.7, Sodium Level 140, Potassium Level 4.2, Chloride Level 105, Carbon Dioxide Level 26, Anion Gap 9, Blood Urea Nitrogen 26H, Creatinine 1.4H, Estimat Glomerular Filtration Rate 51.9, Glucose Level 161H, Calcium Level 8.5 Height (Feet): 5 Height (Inches): 2.00 Weight (Pounds): 141 General Appearance: mild distress EENT: normal ENT inspection Neck: normal alignment Cardiovascular: normal rate, regular rhythm Respiratory/Chest: lungs clear, normal breath sounds Abdomen: non tender, soft Edema: no edema noted Arm (L), no edema noted Arm (R), no edema noted Leg (L), no edema noted Leg (R), no edema noted Pedal (L), no edema noted Pedal (R), no edema noted Generalized Esdras Crawley MD Mar 19, 2019 08:51
[2019-03-19] MEDS: Lisinopril 10mg tab ORAL SCH ×2 (09:01→18:27)
[2019-03-19] MEDS: Aspirin Baby 81mg ORAL SCH (09:01)
[2019-03-19] MEDS: Metoprolol Succinate XL 100mg tab ORAL SCH (09:02)
[2019-03-19] MEDS: Methocarbamol 500mg tab ORAL SCH ×4 (09:03→22:03)
[2019-03-19] MEDS: Enoxaparin 40mg Inj SUBQ SCH ×2 (09:07→10:38)
[2019-03-19] MEDS ORDERED: Labetalol 5mg/ml 20ml vial IV PRN (09:15)
[2019-03-19] MEDS: HydrALAZINE 50mg tab ORAL SCH ×3 (09:22→21:58)
--- NOTE | 2019-03-19 10:15 | Diagnostic Imaging Report ---
EXAM: CT Head Without Intravenous Contrast CLINICAL HISTORY: PAIN TECHNIQUE: Axial computed tomography images of the head/brain without intravenous contrast. CTDI is 60 mGy and DLP is 1334 mGy-cm. One or more of the following dose reduction techniques were used: automated exposure control, adjustment of the mA and/or kV according to patient size, use of iterative reconstruction technique. COMPARISON: No relevant prior studies available. FINDINGS: Brain: 4.5 mm right parietal cortical calcification and 5.4 mm right posterior parietal cortical calcification. 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 No hemorrhage. No significant white matter disease. No mass effect or midline shift. No fluid collections. Ventricles: Unremarkable. No ventriculomegaly. Bones/joints: Unremarkable. No acute fracture. Soft tissues: Scalp vascular calcifications. Sinuses: Moderate mucosal thickening with possible small fluid level of the right maxillary sinus. Mastoid air cells: Unremarkable as visualized. No mastoid effusion. IMPRESSION: 1. No acute intracranial abnormality. 2. 4.5 mm right parietal cortical calcification and 5.4 mm right posterior parietal cortical calcification. 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 3. Moderate mucosal thickening with possible small fluid level of the right maxillary sinus.
[2019-03-19 12:00] VITALS: BP 137/72
[2019-03-19 16:00] VITALS: BP 141/79
--- NOTE | 2019-03-19 19:00 | NUR ---
NURSE NOTES: Received patient in stable condition, AOx4, complains of generalized pain 4/10, Iv site on R AC g20, asymptomatic, intact, patent, bed low and locked, side rails upx3, call light within reach, will continue to monitor and reassess. Daughter at bed side
--- NOTE | 2019-03-19 19:45 | NUR ---
HAND-OFF: Report given to Radha/YOBANY pt in stable condition.
[2019-03-19 20:00] VITALS: BP 171/94
[2019-03-19] MEDS: Atorvastatin 80mg tab ORAL SCH (21:57)
[2019-03-20] VITALS (7 sets, daily range): BP systolic 113–185; BP diastolic 67–85
[2019-03-20] MEDS: HydrALAZINE 50mg tab ORAL SCH ×2 (06:19→21:42)
[2019-03-20] MEDS: NovoLOG Insulin Flexpen SUBQ SCH ×4 (06:21→20:02)
[2019-03-20 07:05] LABS: ANION GAP 7 mmol/L (5-15); BLOOD UREA NITROGEN 27 mg/dL (7-18); CALCIUM 8.3 MG/DL (8.5-10.1); CARBON DIOXIDE 29 MMOL/L (21-32); CHLORIDE 105 MMOL/L (98-107); CREATININE 1.8 MG/DL (0.55-1.30); POTASSIUM 4.4 MMOL/L (3.5-5.1); SODIUM 141 MMOL/L (136-145)
--- NOTE | 2019-03-20 07:31 | NUR ---
NURSE NOTES: Received report from Luciana/RN, Patient is asleep, lying semi-rosales's, resting comfortably. No acute distress/SOB noted. AAO x 4, Able to make needs known. denies pain at this time. IV site on Right AC, patent, no bleeding or infiltration noted. Bed in low position and locked, Bed alarm engaged, side rails up x2. Call light within reach, Encouraged to use call light when needed. Will continue plan of care.
--- NOTE | 2019-03-20 07:32 | NUR ---
HAND-OFF: Report given to YOBANY Blakely, patient in stable condition, plan of care endorsed.
--- NOTE | 2019-03-20 08:47 | Nephrology Progress Note ---
Assessment/Plan Assessment/Plan: ASSESSMENT AND PLAN: 1. Acute coronary syndrome, chest pain secondary to hypertensive urgency. - stress test negative - transfer to [facility] 2. Hypertensive urgency. The patient is noncompliant with medications. - adjust po meds 3. Diabetes mellitus. -continue low-carbohydrate diet with insulin and metformin. 4. Hyperlipidemia. The patient is on Lipitor. 5. Headache could be secondary to hypertensive urgency. -neck and headache pain, back and toe pain - add robaxin, patient not febrile and WBC normal - Neuro consulted, CT Head ordered 6. DVT prophylaxis with Lovenox. 7. GI prophylaxis with famotidine. 8. TARYN- monitor Cr as increased post increase in Lisinopril - Cr back to 1.8. Add IVFs Patint upon entering room in no distress and in no overt pain. Once awkokn c/o pain throughtout entire body and requesting morphine. Patient has been seen by MDs everyday and wants to be transferred to [facility] Subjective Date patient seen: Mar 20, 2019 Time patient seen: 08:37 Allergies: Coded Allergies: No Known Allergies (Unverified , 03/17/19) Subjective Patient says that he has pain in neck, shoulders, back legs and toes Objective Last 24 Hour Vital Signs Date Time Temp Pulse Resp B/P (MAP) Pulse Ox O2 Delivery O2 Flow Rate FiO2 03/20/19 06:24 185/85 (118) 03/20/19 06:19 185/85 03/20/19 04:00 60 03/20/19 04:00 97.8 78 18 141/76 (97) 98 03/20/19 00:00 98.5 77 18 142/71 (94) 98 03/20/19 00:00 68 03/19/19 21:58 171/94 03/19/19 21:00 Room Air Room Air 03/19/19 20:00 97.8 72 16 171/94 (119) 96 03/19/19 20:00 73 03/19/19 18:27 141/79 03/19/19 16:00 98.0 70 20 141/79 (99) 96 03/19/19 16:00 70 03/19/19 14:00 101/78 03/19/19 12:00 98.0 84 18 137/72 (93) 97 11/28/19 12:00 86 03/19/19 09:22 187/78 03/19/19 09:06 81 208/101 03/19/19 09:02 81 208/101 03/19/19 09:01 208/101 03/19/19 09:00 Room Air Room Air Intake and Output 03/19/19 03/20/19 19:00 07:00 Intake Total 380 ml 200 ml Output Total 500 ml Balance 380 ml -300 ml Intake Oral 380 ml 200 ml Output Urine Total 500 ml # Voids 2 2 Laboratory Tests 03/20/19 04:42: Sodium Level 141, Potassium Level 4.4, Chloride Level 105, Carbon Dioxide Level 29, Anion Gap 7, Blood Urea Nitrogen 27H, Creatinine 1.8H, Estimat Glomerular Filtration Rate 38.8, Glucose Level 151H, Calcium Level 8.3L Height (Feet): 5 Height (Inches): 2.00 Weight (Pounds): 141 General Appearance: no apparent distress, alert EENT: normal ENT inspection Neck: normal alignment, supple Cardiovascular: normal rate, regular rhythm Respiratory/Chest: lungs clear, normal breath sounds Abdomen: non tender, soft Edema: no edema noted Arm (L), no edema noted Arm (R), no edema noted Leg (L), no edema noted Leg (R), no edema noted Pedal (L), no edema noted Pedal (R), no edema noted Generalized Esdras Crawley MD Mar 20, 2019 08:47
[2019-03-20] MEDS: Metoprolol Succinate XL 100mg tab ORAL SCH (08:48)
[2019-03-20] MEDS: Aspirin Baby 81mg ORAL SCH (08:48)
[2019-03-20] MEDS: Enoxaparin 40mg Inj SUBQ SCH (08:55)
[2019-03-20] MEDS ORDERED: Lisinopril 10mg tab ORAL SCH (09:00)
[2019-03-20] MEDS ORDERED: Morphine Sulfate 4mg/ml Inj (IV USE ONLY) IVP PRN (09:00)
--- NOTE | 2019-03-20 09:02 | NUR ---
*-* INSURANCE *-* ALL CLINICALS AND REVIEWS HAVE BEEN FAXED TO: [facility] Ref#[id number] CM: Beverly Benton#[phone] ext [phone] fax#[phone]
--- NOTE | 2019-03-20 09:03 | Cardiac Electrophysiology PN ---
Assessment/Plan Assessment/Plan 1. Chest pain with history of prior stent placement. Ruled out for myocardial infarction by serial cardiac enzymes. His EKG shows sinus rhythm with right bundle-branch block and left anterior fascicular block. Keep the patient on Lipitor 80 mg daily, aspirin 81 mg daily, and Toprol 100 mg daily. Nuclear stress test showed no ischemia 2. Essential hypertension, on Toprol-XL 100 mg daily, lisinopril to 10 mg b.i.d. and p.r.n. clonidine to his medical regimen. Echo EF 65% 3. Diabetes. 4. Hyperlipidemia, on Lipitor. JOSIAH RN and Dr Crawley Subjective Subjective No CP or SOB Stress test was nonischemic. Says has generalized body ache Objective Last 24 Hour Vital Signs Date Time Temp Pulse Resp B/P (MAP) Pulse Ox O2 Delivery O2 Flow Rate FiO2 03/20/19 08:49 77 166/80 03/20/19 08:48 77 166/80 03/20/19 08:00 98.2 77 18 166/80 (108) 98 03/20/19 06:24 185/85 (118) 03/20/19 06:19 185/85 03/20/19 04:00 60 03/20/19 04:00 97.8 78 18 141/76 (97) 98 03/20/19 00:00 98.5 77 18 142/71 (94) 98 03/20/19 00:00 68 03/19/19 21:58 171/94 03/19/19 21:00 Room Air Room Air 03/19/19 20:00 97.8 72 16 171/94 (119) 96 03/19/19 20:00 73 03/19/19 18:27 141/79 03/19/19 16:00 98.0 70 20 141/79 (99) 96 03/19/19 16:00 70 03/19/19 14:00 101/78 03/19/19 12:00 98.0 84 18 137/72 (93) 97 03/19/19 12:00 86 03/19/19 09:22 187/78 03/19/19 09:06 81 208/101 03/19/19 09:02 81 208/101 03/19/19 09:01 208/101 Intake and Output 03/19/19 03/20/19 19:00 07:00 Intake Total 380 ml 200 ml Output Total 500 ml Balance 380 ml -300 ml Intake Oral 380 ml 200 ml Output Urine Total 500 ml # Voids 2 2 Laboratory Tests Test 03/20/19 04:42 Sodium Level 141 MMOL/L (136-145) Potassium Level 4.4 MMOL/L (3.5-5.1) Chloride Level 105 MMOL/L (98-107) Carbon Dioxide Level 29 MMOL/L (21-32) Anion Gap 7 mmol/L (5-15) Blood Urea Nitrogen 27 mg/dL (7-18) H Creatinine 1.8 MG/DL (0.55-1.30) H Estimat Glomerular Filtration Rate 38.8 mL/min (>60) Glucose Level 151 MG/DL (74-106) H Calcium Level 8.3 MG/DL (8.5-10.1) L Objective HEAD AND NECK: No JVD. LUNGS: Clear. CARDIOVASCULAR: Regular S1 and S2 with no gallop or murmur. ABDOMEN: Soft. EXTREMITIES: No pitting edema. Steven Garces MD Mar 20, 2019 09:03
[2019-03-20] MEDS ORDERED: Morphine Sulfate 2mg/ml Inj(IV/IM USE ONLY) IVP PRN (09:15)
[2019-03-20] MEDS ORDERED: HYDROcodone/Acetamin 5/325 tab ORAL PRN ×2 (09:30→16:30)
[2019-03-20] MEDS ORDERED: Methocarbamol 500mg tab ORAL PRN (09:30)
--- NOTE | 2019-03-20 09:35 | Consultation ---
History of Present Illness General Date patient seen: Mar 20, 2019 Chief Complaint: Present Illness Allergies: Coded Allergies: No Known Allergies (Unverified , 03/17/19) Medication History Scheduled Atorvastatin Calcium* (Lipitor*), 80 MG ORAL BEDTIME, (Reported) Lisinopril* (Lisinopril*), 10 MG ORAL DAILY, (Reported) Metformin Hcl* (Metformin Hcl*), 850 MG ORAL DAILY, (Reported) Metoprolol Succinate* (Metoprolol Succinate*), 100 MG ORAL DAILY, (Reported) Patient History Healthcare decision maker Resuscitation status Full Code Advanced Directive on File Physical Exam Last 24 Hour Vital Signs Date Time Temp Pulse Resp B/P (MAP) Pulse Ox O2 Delivery O2 Flow Rate FiO2 03/20/19 09:19 166/80 03/20/19 08:49 77 166/80 03/20/19 08:48 77 166/80 03/20/19 08:00 98.2 77 18 166/80 (108) 98 03/20/19 06:24 185/85 (118) 03/20/19 06:19 185/85 03/20/19 04:00 60 03/20/19 04:00 97.8 78 18 141/76 (97) 98 03/20/19 00:00 98.5 77 18 142/71 (94) 98 03/20/19 00:00 68 03/19/19 21:58 171/94 03/19/19 21:00 Room Air Room Air 03/19/19 20:00 97.8 72 16 171/94 (119) 96 03/19/19 20:00 73 03/19/19 18:27 141/79 03/19/19 16:00 98.0 70 20 141/79 (99) 96 03/19/19 16:00 70 03/19/19 14:00 101/78 03/19/19 12:00 98.0 84 18 137/72 (93) 97 03/19/19 12:00 86 Intake and Output 03/19/19 03/20/19 19:00 07:00 Intake Total 380 ml 200 ml Output Total 500 ml Balance 380 ml -300 ml Intake Oral 380 ml 200 ml Output Urine Total 500 ml # Voids 2 2 Laboratory Tests Test 03/20/19 04:42 Sodium Level 141 MMOL/L (136-145) Potassium Level 4.4 MMOL/L (3.5-5.1) Chloride Level 105 MMOL/L (98-107) Carbon Dioxide Level 29 MMOL/L (21-32) Anion Gap 7 mmol/L (5-15) Blood Urea Nitrogen 27 mg/dL (7-18) H Creatinine 1.8 MG/DL (0.55-1.30) H Estimat Glomerular Filtration Rate 38.8 mL/min (>60) Glucose Level 151 MG/DL (74-106) H Calcium Level 8.3 MG/DL (8.5-10.1) L Height (Feet): 5 Height (Inches): 2.00 Weight (Pounds): 141 Medications Current Medications Medications (Trade) Dose Ordered Sig/Sally Route PRN Reason Start Time Stop Time Status Last Admin Dose Admin Acetaminophen (Tylenol) 650 mg Q4H PRN ORAL Mild Pain (Pain Scale 1-3) 03/17/19 08:30 04/16/19 08:29 03/19/19 21:59 Acetaminophen/ Hydrocodone Bitart ([place] 5/325) 1 tab Q4H PRN ORAL Moderate Pain (Pain Scale 4-6) 03/20/19 09:30 03/27/19 09:29 Amlodipine Besylate (Norvasc) 10 mg DAILY ORAL 03/19/19 09:00 04/18/19 08:59 03/20/19 08:49 Aspirin (ASA) 81 mg DAILY ORAL 03/17/19 09:00 04/16/19 08:59 03/20/19 08:48 Atorvastatin Calcium (Lipitor) 80 mg BEDTIME ORAL 03/17/19 21:00 04/16/19 20:59 03/19/19 21:57 Dextrose (Dextrose 50%) 25 ml Q30M PRN IV Hypoglycemia 03/17/19 08:30 04/16/19 08:29 Dextrose (Dextrose 50%) 50 ml Q30M PRN IV Hypoglycemia 03/17/19 08:30 04/16/19 08:29 Enoxaparin Sodium (Lovenox) 40 mg DAILY SUBQ 03/17/19 09:30 04/16/19 09:29 03/20/19 08:55 Famotidine (Pepcid) 40 mg DAILY ORAL 03/17/19 09:00 04/16/19 08:59 03/20/19 08:48 Gabapentin (Neurontin) 100 mg THREE TIMES A DAY ORAL 03/20/19 13:00 04/19/19 09:29 UNV Hydralazine HCl (Apresoline) 100 mg Q8HR ORAL 03/20/19 14:00 04/18/19 08:59 Insulin Aspart (NovoLOG) BEFORE MEALS AND HS SUBQ 03/17/19 11:30 04/16/19 11:29 03/20/19 06:21 Labetalol HCl (Normodyne) 10 mg Q4H PRN IV For High Blood Pressure 03/19/19 09:15 04/18/19 09:14 Lisinopril (ZestriL) 10 mg DAILY ORAL 03/20/19 09:00 04/16/19 09:59 03/20/19 09:19 Metformin HCl (Glucophage) 850 mg TIAC ORAL 03/17/19 11:30 04/16/19 11:29 03/20/19 06:19 Methocarbamol (Robaxin) 500 mg Q8H PRN ORAL muscle spasm 03/20/19 09:30 04/19/19 09:29 Metoprolol Succinate (Toprol XL) 100 mg DAILY ORAL 03/17/19 09:00 04/16/19 08:59 03/20/19 08:48 Morphine Sulfate (Morphine Sulfate) 1 mg Q4H PRN IVP severe pain 03/20/19 13:15 03/27/19 08:59 Nitroglycerin (Ntg) 0.4 mg Q5M PRN SL Prn Chest Pain 03/17/19 08:30 04/16/19 08:29 Ondansetron HCl (Zofran) 4 mg Q6H PRN IVP Nausea & Vomiting 03/17/19 08:30 04/16/19 08:29 Sodium Chloride 1,000 ml @ 75 mls/hr [id number] IV 03/20/19 09:00 04/19/19 08:59 Assessment/Plan Assessment/Plan: (1) Cervicalgia (2) Lumbago (3) Lumbar DDD/ Spondylosis (4) Lumbar Radiculopathy/ R/o Herniated disc (5) H/O Lumbar surgery seen dictated Chilo Mulligan Mar 20, 2019 09:35
[2019-03-20] MEDS ORDERED: Cyclobenzaprine 10mg Tab ORAL PRN ×2 (09:45→17:00)
[2019-03-20] MEDS: Morphine Sulfate 2mg/ml Inj(IV/IM USE ONLY) IVP PRN ×3 (10:00→19:49)
--- NOTE | 2019-03-20 11:25 | NUR ---
PT EVALUATION NOTE Patient seen for initial evaluation, see complete evaluation for details. Patient presents with generalized weakness and pain which affects patient's ability to perform mobility tasks safely. Patient requires min assist for bed mobility and CGA for transfers. Patient is unsteady during ambulation with antalgic gait and impaired balance. Patient may benefit from using an assistive device for ambulation depending on patient's progress and level of pain with mobility. Patient will benefit from skilled inpatient PT intervention to address strength, balance and safety for improved level of functional mobility. Recommend discharge home once medically cleared by MD. DME needs to be determined based on patient's progress. Addendum: 03/20/19 at 1321 by PAT HILTON PT Amended: Links added.
--- NOTE | 2019-03-20 12:31 | NUR ---
MRI LUMBAR AND MRI BRAIN COMPLETED.
--- NOTE | 2019-03-20 13:13 | NUR ---
MAINTENANCE [employer] SI: HYPERTENSION URGENCY T. 98.2 HR 77 RR 18 B/P 106/80 BUN 27 CR 1.8 IS: IVF NS @ 75ML/HR LOVENOX SUBC PEPCID APRESOLINE MRI BRAIN TELE STATUS
[2019-03-20] MEDS ORDERED: HydrALAZINE 50mg tab ORAL SCH (14:00)
--- NOTE | 2019-03-20 14:38 | NUR ---
03/20...CONCERNING THE MRI CHEST, THIS EXAM IS RARELY DONE. PER THE RADIOLOGIST, DR. SILVA NEEDS TO TALK TO THE RADIOLOGIST ( DR. PACK) SO THAT THIS EXAM CAN BE PROPERLY PROTOCOLED OR CHANGED TO A MORE APPROPRIATE MODALITY. WE DO NOT PERFORM MRI HEART EXAMS, WE DO NOT HAVE THE SOFTWARE PACKAGE. CALL [phone] TO BE TRANSFERRED TO THE RADIOLOGIST. SALO 14:36
--- NOTE | 2019-03-20 15:02 | NUR ---
NURSE NOTES: Called Md Blackman and advised that radiology Md recommends CT of the chest instead of MRI of the chest
--- NOTE | 2019-03-20 15:30 | Consultation ---
DATE OF CONSULTATION: 03/20/2019 PAIN MANAGEMENT CONSULTATION REFERRING PHYSICIAN: Esdras Crawley M.D. CONSULTING PHYSICIAN: Tobias Garces M.D. PHYSICIAN CHERRY GROWER: Dulce Shah CHIEF COMPLAINT: Neck and low back pain. HISTORY OF PRESENT ILLNESS: This is a 58-year-old male, who has been seen on the telemetry floor of [facility] for initial pain management consultation. The patient was admitted under the care of Dr. Crawley and due to hypertensive urgency and chest pain, he was seen by Dr. Garces, who cleared the patient from any cardiac disease at this time. However, he has been having severe neck and lower back pain over the past few days. He states that he used to work in [employer]. His neck pain has been worse with movement and spasming and his lower back has history of lumbar surgery in 2004 and now pain shooting down into his right lower extremities. The pain is worse with movement and is unable to be comfortable in the bed. He was started on morphine 1 mg IV every four hours as needed. Today, had been on Robaxin 500 mg four times a day with minimal relief from any spasms and due to the severity of his pain, we were consulted. The patient will have adequate pain control while here in the hospital. PAST MEDICAL HISTORY: Diabetes mellitus and hypertension. 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 SOCIAL HISTORY: Drinks alcohol. Denies IV drug abuse and tobacco use. ALLERGIES: No known drug allergies. MEDICATIONS: Metformin, metoprolol, atorvastatin, lisinopril, and hydrochlorothiazide. REVIEW OF SYSTEMS: Denies rash, fever, chills, sweating, dizziness, drowsiness, blurred vision, sore throat, or change in weight. No shortness of breath or chest pain. No nausea, vomiting, diarrhea, blood in stool, or urine. No dysuria. He is complaining of neck and back pain. PHYSICAL EXAMINATION: GENERAL: Alert, awake, and oriented. VITAL SIGNS: Blood pressure is 166/80, heart rate is 77, oxygen saturation is 98%, and respiratory rate is 18. HEENT: PERRLA. NECK: Range of motion is decreased due to the patient's condition with tenderness to paracervical muscles. No adenopathy. LUNGS: Decreased breath sounds bilaterally. HEART: S1 and S2 regular. ABDOMEN: Soft and nontender. BACK: Range of motion is decreased in flexion extension with tenderness to paraspinal muscles. No tenderness to trapezius and rhomboid muscles with surgical scar noted on midline of lumbar spine. EXTREMITIES: Upper extremity range of motion is decreased due to the patient's condition. No cyanosis. No clubbing. No edema. Sensory is intact. Reflexes are not obtainable. No adenopathy. Lower extremity range of motion is decreased due to the patient's pain and condition with motor being on the right 4/5 in all muscles and the left being 5/5 in all muscles. No cyanosis. No clubbing. No edema. Sensory is intact. Reflexes are not obtainable. No adenopathy. ASSESSMENT AND PLAN: This is a 58-year-old male with cervicalgia, lumbago, lumbar degenerative disease, lumbar spondylosis, lumbar radiculopathy, rule out lumbar herniated disc, and history of lumbar surgery. The patient will be continued on morphine. He will be started on Topock 5/325 mg one tablet every four hours as needed for moderate pain. We will start the patient on Flexeril 10 mg tablet every eight hours as needed for muscle spasms as well as Neurontin 100 mg tablet three times a day. The patient was discussed with Dr. Garces and concurred. We will follow the patient. Thank you very much for the courtesy of this consultation. Tobias Garces M.D. NKECHI Shah DR: Kay JOB#: [id number] CC: CHANDRA
--- NOTE | 2019-03-20 16:17 | NUR ---
NURSE NOTES: Patient transferred to [facility] ([facility]), and report given to Luz/RN. Patient is in stable condition, On room air, no acute distress/SOB noted. Belonging check done with receiving nurse. Pants and socks sent home with Davina (daughter). Endorsed plan of care.
[2019-03-20] MEDS ORDERED: Nitroglycerin Subl 0.4mg tab SL PRN (16:20)
--- NOTE | 2019-03-20 16:23 | NUR ---
NURSE NOTES: Patient transferred from Tele, received report from Zora RN; Belonging list singed by transferring and receiving nurse; I received insulin pen; patient alert x4; on room air, no sing of distress and shortness of breath; no sing of chest pain; IV Right AC 20G 1/2NS @75cc; skin intact; urinal within reach; side rails up x2, breaks engaged, bed at lowest position; call light within reach; family member at the bed side; Will keep monitoring.
[2019-03-20] MEDS ORDERED: Labetalol 5mg/ml 20ml vial IV PRN (17:15)
--- NOTE | 2019-03-20 19:34 | NUR ---
HAND-OFF: Report given to YOBANY Flower.
--- NOTE | 2019-03-20 19:37 | NUR ---
NURSE NOTES: Pt received in bed with family at the bedside, c/o pain ,will give pain medication, able to make needs known, call light within reach, head of bed elevated, will continue to monitor.
[2019-03-20] MEDS: Atorvastatin 80mg tab ORAL SCH (20:01)
[2019-03-21] VITALS: BP 138/69
--- NOTE | 2019-03-21 00:02 | Consultation ---
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 The patient is admitted with chief complaint of chest pain and found to have a systolic blood pressure of 240. I was asked to see the patient because of his headaches, which he states occurred on one day after his stress test. HISTORY OF PRESENT ILLNESS: The patient denies any previous history of headaches, which include migraines. There is no history of farsightedness. The patient states he was admitted with chest pain and also had neck pain and back pain. The patient came to the hospital on 03/17/2019 and the patient was found to be anemic with normal white count and normal platelet counts. His chemistry is normal with slightly elevated creatinine, which is improving. His bilirubin is normal. His phosphatase and magnesium are normal. The troponin is normal. The chest x-ray revealed there were no acute findings. The patient had UA normal. He had prerenal azotemia as well. Normal LFT panel that improved. He states he had a five-minute headache at that time, bifrontal, somewhat severe without nausea or vomiting. He was previously on a diet. The patient suggested he had headaches on the day prior to admission. He has had azotemia, which revealed a normal clinical response to pharmacologics. No imaging findings to suggest ischemia. An echocardiogram was done, which revealed a normal ejection fraction with focal aortic valve sclerosis and thickened mitral annulus, mitral valve leaflets, and aortic calcification. The patient's blood pressure on admission was 246/110 and it was treated and now it is mildly elevated. The patient was started on gabapentin 1200 mg t.i.d as well as hydralazine, sliding scale insulin, labetalol, lisinopril 10 mg, metoprolol 100 mg a day, nitroglycerin, Zosyn, Pepcid, Lovenox 40 mg subcutaneous daily, and Flexeril. The patient is still to have an MRI scan today of his neck. He denies any memory loss, seizures, or blackout spells. There is no loss of smell or taste or diplopia. He does, however, have visual loss in his right eye secondary to a hemorrhage in his right eye. The patient's retinal hemorrhage in his right eye discovered about two months ago. He also has lower back pain radiating down his right leg without paresthesias or dysesthesias. The leg pain is in the right posterolateral part of his leg. He complains of his whole body shakes. He denies any muscle weakness except for his right leg, which is associated with pain. There is no nausea or vomiting. There is no previous history of stroke. He denies any loss of bowel or bladder function. The patient quit smoking about 30 years ago. He denies any cough, shortness of breath, or fever, but complains of chills. He does not drink at this point. His neck pain is "10/10" in severity. He also has trouble describing his back pain. PAST MEDICAL HISTORY/PAST MEDICAL ILLNESSES: 1. Hypertension, even though denies taking medications. 2. Hyperlipidemia, on no medications. 3. AODM type 2. 4. Coronary artery disease, see above. 5. 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 6. Right retinal hemorrhage. ALLERGIES: No known allergies. HABITS: See above. SOCIAL HISTORY: He is . 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 He has 10 children, allegedly in good health. PAST SURGICAL HISTORY: See above, which included LS spine surgery. FAMILY HISTORY: The patient has a family history of hypertension and diabetes. PHYSICAL EXAMINATION: GENERAL: He is a well-developed, well-nourished, disheveled man lying in bed, in mild distress due to the pain. VITAL SIGNS: Blood pressure 157/72, pulse is 80 and regular, respiration rate is 13, and temperature is 97.6 degrees. HEENT: Examination of head, ears, eyes, nose, mouth, and throat is basically normal. NECK: He has posterior cervical tenderness to palpation. He has limitation of motion of his neck mainly laterally and some extension, not much in forward flexion. His neck is generally supple. Carotids are +2. No bruits could be appreciated. LUNGS: Clear to auscultation. CARDIOVASCULAR: PMI was not felt. JVP was not distended. The patient's S1 was buried and nearly holosystolic murmur heard best at the right second intercostal space midclavicular line radiating to the left sternal border and increased with respiration. There is no S3 or S4 that I could hear. ABDOMEN: His abdomen is slightly obese and nontender. Bowel sounds are intact. There is no evidence of organomegaly. EXTREMITIES: He has missing index and middle finger near to the MTP joints. Peripheral pulses were felt in his upper extremities, but not the lower extremities. BACK: He had diffuse tenderness in his back to percussion without muscle spasm. NEUROLOGIC: Mental status, judgment was not tested. Affect, affect was appropriate. Memory, past memory was intact to mother's maiden name and his birthday. Immediate recall is 3/3 words. Recent recall is 1/3 words at 5 minutes and 2/3 with a clue. Intellect similarities were concrete i.e. bicycle and train "have wheels", watch and ruler "have numbers." Orientation, he knew the date was 03/20/2019. Place, he knew he was at [facility] second floor. Person, he was oriented to person. Spoken speech was basically fluent in [place]ese. Vietnamese was the second language, but his comprehension is good. Repetition, simple repetition is intact. He can name my hat and my causal. He could spell josiah in [place]ese forwards and could spell 4/5 letters backwards. There are no paraphasic errors noted. CRANIAL NERVE EXAMINATION: CRANIAL NERVES II: He had absent superior hemifield OD. Visual mercer on the left were normal. Fundi were not visualized. CRANIAL NERVES III, IV, AND : Extraocular motility was full. The right pupil is about 3 mm round. The left pupil was about 2.5 to 3 mm, slightly elliptical. There was poor light reaction bilaterally. CRANIAL NERVE V: Facial and corneal sensations were intact to fine touch. CRANIAL NERVE VII: Facial strength was 5/5. CRANIAL NERVE VIII: Auditory acuity was basically intact to a whisper. CRANIAL NERVES IX AND X: Gag was slightly decreased bilaterally. CRANIAL NERVE XI: Sternocleidomastoid strength is 5/5. CRANIAL NERVE XII: Tongue protrudes in the midline without fasciculations or atrophy. MUSCULOSKELETAL: Muscle bulk is basically intact except for perhaps slight hypothenar atrophy on the right hand. Tone was normal. Strength was 5/5 in the upper extremities without pronator drift and in the lower extremities except for the following. He had bilateral 4/5 strength in the first dorsal interosseous muscles and abductor digiti quinti muscles and the fifth finger flexors. Flexor carpi ulnaris muscles were 5-/5. Reflexes were 0 in the upper and lower extremities with downgoing toes when testing for Babinski response, more so on the right than the left. COORDINATION: [id number], [id number] testing, and rapid alternating movements were normal. GAIT AND STATION: Not tested. SENSORY EXAMINATION: Proprioception was normal. He had decreased vibration to the shins and in the DIP joints of the upper extremities. He had decreased pinprick to below the knee in both lower extremities and decreased pinprick to just above the wrist in both upper extremities. Fine touch appeared to be intact. IMPRESSION: 1. Headache, probably secondary to his blood pressure out of control as well as possibly injection associated with stress test, now resolved. 2. Possible minimal cognitive impairment or impairment from his hypertension. 3. Visual field loss OD on the right secondary to retinal hemorrhage, probably from diabetes. 4. 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 5. L5-S1 radiculopathy on the right secondary to disk herniation. 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 7. Diffuse myofascial pain, possibly related to his hypertension. No strong evidence of cervical myelopathy at this time. There is no evidence of any cervical spinal cord, epidural, or subdural hemorrhage. May want to consider aortic dissection. PLAN: 1. MRI scan of the cervical spine. 2. Rule out aortic dissection. 3. MRI scan of the brain and neck. 4. Continue his gabapentin. Thank you for this interesting case, Dr. Crawley. Nicola Blackman MD DR: Hui JOB#: [id number] CC:
[2019-03-21] MEDS: Morphine Sulfate 2mg/ml Inj(IV/IM USE ONLY) IVP PRN ×4 (01:52→17:10)
--- NOTE | 2019-03-21 03:28 | NUR ---
HAND-OFF: Report given to YOBANY Murillo.
[2019-03-21 04:00] VITALS: BP 137/70
[2019-03-21] MEDS: HydrALAZINE 50mg tab ORAL SCH ×3 (06:10→21:01)
[2019-03-21] MEDS: NovoLOG Insulin Flexpen SUBQ SCH ×4 (06:30→20:57)
--- NOTE | 2019-03-21 07:10 | NUR ---
NURSE NOTES: HANDOFF RECEIVED FROM YOBANY HE. PATIENT RECEIVED SLEEPING IN BED, NO ACUTE SIGNS OF DISTRESS NOTED. BED IN THE LOW AND LOCKED POSITION WITH CALL LIGHT WITHIN REACH, IV SITE IS CLEAN DRY AND INTACT RUNNING PRESCRIBED FLUIDS, WILL CONTINUE TO MONITOR PATIENT.
--- NOTE | 2019-03-21 07:34 | NUR ---
HAND-OFF: Report given to YOBANY Castro.
[2019-03-21 08:00] VITALS: BP 129/69
[2019-03-21] MEDS: Aspirin Baby 81mg ORAL SCH (09:09)
--- NOTE | 2019-03-21 09:11 | Nephrology Progress Note ---
Assessment/Plan Assessment/Plan: ASSESSMENT AND PLAN: 1. Acute coronary syndrome, chest pain secondary to hypertensive urgency. - stress test negative 2. Hypertensive urgency. The patient is noncompliant with medications. - adjusted po meds and BP at goal 3. Diabetes mellitus. -low-carbohydrate diet with insulin and metformin. 4. Hyperlipidemia. The patient is on Lipitor. 5. Headache - secondary to hypertensive urgency. -neck and headache pain, back and toe pain - pain mgmt assistance appreciated - Neuro consulted, MRI results pending 6. DVT prophylaxis with Lovenox. 7. GI prophylaxis with famotidine. 8. TARYN- monitor Cr as increased post increase in Lisinopril - Am labs pending Patient has component of opiod seeking behaviour. DC once any organic pathology ruled out Subjective Date patient seen: Mar 21, 2019 Time patient seen: 09:07 ROS Limited/Unobtainable: No Allergies: Coded Allergies: No Known Allergies (Unverified , 03/17/19) Subjective Patient says pain in neck, shoulders, back legs and toes, everywhere and only morphine can help Objective Last 24 Hour Vital Signs Date Time Temp Pulse Resp B/P (MAP) Pulse Ox O2 Delivery O2 Flow Rate FiO2 03/21/19 08:00 98.3 76 16 129/69 (89) 96 03/21/19 06:41 97.4 03/21/19 06:10 137/70 03/21/19 04:00 97.4 72 19 137/70 (92) 98 03/21/19 00:00 97.5 74 19 138/69 (92) 97 03/20/19 21:42 130/69 03/20/19 21:00 Room Air Room Air 03/20/19 20:00 97.8 71 20 121/67 (85) 97 03/20/19 17:14 97.7 03/20/19 16:00 97.7 67 20 113/67 (82) 97 03/20/19 14:34 147/80 03/20/19 12:00 97.9 77 20 147/80 (102) 98 03/20/19 09:19 166/80 Intake and Output 03/20/19 03/21/19 19:00 07:00 Intake Total 300 ml 975 ml Output Total 150 ml 550 ml Balance 150 ml 425 ml Intake Oral 150 ml 150 ml IV Total 150 ml 825 ml Output Urine Total 150 ml 550 ml # Voids 1 2 Height (Feet): 5 Height (Inches): 2.00 Weight (Pounds): 141 General Appearance: no apparent distress, alert EENT: normal ENT inspection Neck: normal alignment, supple Cardiovascular: normal rate, regular rhythm Respiratory/Chest: lungs clear, normal breath sounds Abdomen: non tender, soft Edema: no edema noted Arm (L), no edema noted Arm (R), no edema noted Leg (L), no edema noted Leg (R), no edema noted Pedal (L), no edema noted Pedal (R), no edema noted Generalized Esdras Crawley MD Mar 21, 2019 09:11
[2019-03-21] MEDS: Metoprolol Succinate XL 100mg tab ORAL SCH (09:12)
[2019-03-21] MEDS: Lisinopril 10mg tab ORAL SCH (09:13)
[2019-03-21] MEDS: Enoxaparin 40mg Inj SUBQ SCH (09:14)
[2019-03-21 09:53] LABS: ANION GAP 9 mmol/L (5-15); BLOOD UREA NITROGEN 23 mg/dL (7-18); CALCIUM 8.5 MG/DL (8.5-10.1); CARBON DIOXIDE 26 MMOL/L (21-32); CHLORIDE 104 MMOL/L (98-107); CREATININE 1.5 MG/DL (0.55-1.30); POTASSIUM 4.7 MMOL/L (3.5-5.1); SODIUM 139 MMOL/L (136-145)
[2019-03-21 12:00] VITALS: BP 126/65
--- NOTE | 2019-03-21 15:56 | Cardiac Electrophysiology PN ---
Assessment/Plan Assessment/Plan 1. Chest pain with history of prior stent placement. Ruled out for myocardial infarction by serial cardiac enzymes. His EKG shows sinus rhythm with right bundle-branch block and left anterior fascicular block. Keep the patient on Lipitor 80 mg daily, aspirin 81 mg daily, and Toprol 100 mg daily. Nuclear stress test showed no ischemia 2. Essential hypertension, on Toprol-XL 100 mg daily, lisinopril to 10 mg b.i.d. and p.r.n. clonidine Echo EF 65% 3. Diabetes. 4. Hyperlipidemia, on Lipitor. 5. Generalized body ache. FU by pain management JOSIAH RN Subjective Subjective No CP or SOB . Still has generalized body ache Objective Last 24 Hour Vital Signs Date Time Temp Pulse Resp B/P (MAP) Pulse Ox O2 Delivery O2 Flow Rate FiO2 03/21/19 14:12 126/65 03/21/19 12:00 98.2 73 16 126/65 (85) 95 03/21/19 09:13 129/69 03/21/19 09:12 76 129/69 03/21/19 09:12 76 129/69 03/21/19 09:00 Room Air Room Air 03/21/19 08:00 98.3 76 16 129/69 (89) 96 03/21/19 06:41 97.4 03/21/19 06:10 137/70 03/21/19 04:00 97.4 72 19 137/70 (92) 98 03/21/19 00:00 97.5 74 19 138/69 (92) 97 03/20/19 21:42 130/69 03/20/19 21:00 Room Air Room Air 03/20/19 20:00 97.8 71 20 121/67 (85) 97 03/20/19 17:14 97.7 03/20/19 16:00 97.7 67 20 113/67 (82) 97 Intake and Output 03/20/19 03/21/19 19:00 07:00 Intake Total 300 ml 975 ml Output Total 150 ml 550 ml Balance 150 ml 425 ml Intake Oral 150 ml 150 ml IV Total 150 ml 825 ml Output Urine Total 150 ml 550 ml # Voids 1 2 Laboratory Tests Test 03/21/19 09:20 Sodium Level 139 MMOL/L (136-145) Potassium Level 4.7 MMOL/L (3.5-5.1) Chloride Level 104 MMOL/L (98-107) Carbon Dioxide Level 26 MMOL/L (21-32) Anion Gap 9 mmol/L (5-15) Blood Urea Nitrogen 23 mg/dL (7-18) H Creatinine 1.5 MG/DL (0.55-1.30) H Estimat Glomerular Filtration Rate 47.9 mL/min (>60) Glucose Level 115 MG/DL (74-106) H Calcium Level 8.5 MG/DL (8.5-10.1) Objective HEAD AND NECK: No JVD. LUNGS: Clear. CARDIOVASCULAR: Regular S1 and S2 with no gallop or murmur. ABDOMEN: Soft. EXTREMITIES: No pitting edema. Steven Garces MD Mar 21, 2019 15:56
[2019-03-21 16:00] VITALS: BP 138/70
--- NOTE | 2019-03-21 19:03 | Diagnostic Imaging Report ---
EXAM: MR Cervical Spine Without Intravenous Contrast CLINICAL HISTORY: PAIN TECHNIQUE: Magnetic resonance images of the cervical spine without intravenous contrast in multiple planes. COMPARISON: 03/20/19 x-ray FINDINGS: Vertebral elements: 1-2 mm retrolisthesis of C5 on C6 and C6 on C7. No acute fracture. Discs: Multilevel disc desiccation with mild disc height loss at C67. Marrow signal: No marrow edema. Soft tissues: Trace prevertebral edema from the 3 to C5. Cord: No cord signal abnormality. C2-3: Unremarkable. C3-4: Mild left foraminal stenosis secondary to uncovertebral hypertrophy and facet arthrosis. Effacement of the ventral CSF space secondary to posterior disc osteophyte complex without causing spinal canal stenosis. C4-5: Mild left foraminal stenosis secondary to uncovertebral hypertrophy and facet arthrosis. Effacement of the ventral CSF space secondary to posterior disc osteophyte complex without causing spinal canal stenosis. C5-6: Severe left foraminal stenosis secondary to uncovertebral hypertrophy and facet arthrosis. Effacement of the ventral CSF space secondary to posterior disc osteophyte complex without causing spinal canal stenosis. C6-7: Severe bilateral foraminal stenosis secondary to uncovertebral hypertrophy and facet arthrosis. Mild spinal canal stenosis secondary to posterior disc osteophyte complex and ligament flavum redundancy. C7-T1: Mild left foraminal stenosis. No spinal canal stenosis. No facet arthrosis. IMPRESSION: 1. No acute fracture. 2. Trace prevertebral edema from C3-C5, cannot exclude anterior longitudinal ligament injury the setting of trauma. If there is no trauma, it may be degenerative in nature. 3. Multilevel degenerative disc disease most notable for left-sided foraminal stenosis throughout the cervical spine most severe from C5-C6 and bilaterally at C6-7. Mild spinal canal stenosis at C6-7. No cord signal abnormality.
--- NOTE | 2019-03-21 19:10 | NUR ---
NURSE NOTES: Pt received in bed awake, with family at bedside, no c/o pain or signs of distress, able to make needs known, vomit X 1, pt given Zofran, will monitor for any more episodes of vomiting, IV fluids runnig, will continue to monitor.
--- NOTE | 2019-03-21 19:39 | NUR ---
HAND-OFF: Report given to YOBANY OCAMPO.
[2019-03-21 20:00] VITALS: BP 145/67
[2019-03-21] MEDS: Atorvastatin 80mg tab ORAL SCH (20:56)
[2019-03-22] VITALS (7 sets, daily range): BP systolic 110–153; BP diastolic 61–98
[2019-03-22] MEDS: Morphine Sulfate 2mg/ml Inj(IV/IM USE ONLY) IVP PRN ×2 (01:19→14:12)
[2019-03-22] MEDS: HydrALAZINE 50mg tab ORAL SCH ×3 (05:52→21:22)
[2019-03-22] MEDS: NovoLOG Insulin Flexpen SUBQ SCH ×4 (05:53→21:23)
--- NOTE | 2019-03-22 07:48 | NUR ---
HAND-OFF: Report given to YOBANY Balderrama.
--- NOTE | 2019-03-22 08:19 | NUR ---
NURSE NOTES: Patient awake and alert and oriented,respirations unlabored.IV fluids infusing as ordered .Call light within reach.
[2019-03-22] MEDS: Aspirin Baby 81mg ORAL SCH (08:52)
[2019-03-22] MEDS: Metoprolol Succinate XL 100mg tab ORAL SCH (08:53)
[2019-03-22] MEDS: Lisinopril 10mg tab ORAL SCH (08:54)
[2019-03-22] MEDS: Enoxaparin 40mg Inj SUBQ SCH (08:56)
--- NOTE | 2019-03-22 11:17 | Nephrology Progress Note ---
Assessment/Plan Assessment/Plan: ASSESSMENT AND PLAN: 1. Acute coronary syndrome, chest pain secondary to hypertensive urgency. - stress test negative. Resolved 2. Hypertensive urgency. The patient is noncompliant with medications. - adjusted po meds and BP at goal. Rx given 3. Diabetes mellitus. -low-carbohydrate diet with insulin and metformin. 4. Hyperlipidemia. The patient is on Lipitor. 5. Headache - secondary to hypertensive urgency and DJD neck -neck and headache pain, back and toe pain - pain mgmt assistance appreciated - F/U neuro 1 week - f/u PCP 1 week for Ortho referral 6. DVT prophylaxis with Lovenox. 7. GI prophylaxis with famotidine. 8. TARYN- monitor Cr as increased post increase in Lisinopril - Cr down to 1.5, can f/u with me 1 week DC today once MRi chest results noted Subjective Date patient seen: Mar 22, 2019 Time patient seen: 11:13 ROS Limited/Unobtainable: No Allergies: Coded Allergies: No Known Allergies (Unverified , 03/17/19) Subjective Patient says chronic pain in neck, improved Objective Last 24 Hour Vital Signs Date Time Temp Pulse Resp B/P (MAP) Pulse Ox O2 Delivery O2 Flow Rate FiO2 03/22/19 09:02 Room Air Room Air 03/22/19 08:54 138/70 03/22/19 08:53 76 138/70 03/22/19 08:53 76 138/70 03/22/19 08:00 99.0 81 19 138/73 (94) 95 03/22/19 05:52 143/68 03/22/19 04:00 97.4 74 19 153/73 (99) 98 03/22/19 00:00 97.5 80 19 135/72 (93) 96 03/21/19 21:01 133/67 03/21/19 21:00 Room Air Room Air 03/21/19 20:00 98.9 79 19 145/67 (93) 98 03/21/19 16:00 98.1 77 17 138/70 (92) 95 03/21/19 14:12 126/65 03/21/19 12:00 98.2 73 16 126/65 (85) 95 Intake and Output 03/21/19 03/22/19 19:00 07:00 Intake Total 555 ml 1080 ml Balance 555 ml 1080 ml Intake Oral 480 ml 480 ml IV Total 75 ml 600 ml # Voids 3 Height (Feet): 5 Height (Inches): 2.00 Weight (Pounds): 141 General Appearance: no apparent distress, alert EENT: normal ENT inspection Neck: normal alignment, supple Cardiovascular: normal rate, regular rhythm Respiratory/Chest: lungs clear, normal breath sounds Abdomen: non tender, soft Edema: no edema noted Arm (L), no edema noted Arm (R), no edema noted Leg (L), no edema noted Leg (R), no edema noted Pedal (L), no edema noted Pedal (R), no edema noted Generalized Esdras Crawley MD Mar 22, 2019 11:17
--- NOTE | 2019-03-22 11:20 | Discharge Instructions ---
Discharge Instructions Discharge Instructions Services at Discharge: day care Resume Normal Activity?: Yes Activity: light activity Follow Up Orders Follow Up with Dr Nicola Melendez [address] Crawley 1 week Follow Up PCP 1 week for Orthopedics referral For Congestive Heart Failure Reminder Report to your physician any weight gain of 5 pounds or more in one week. Esdras Crawley MD Mar 22, 2019 11:20
--- NOTE | 2019-03-22 12:18 | Diagnostic Imaging Report ---
Indication: Altered mental status Technique: The head was imaged in a 1.5 Darshana magnet. Sequences obtained include sagittal and axial T1 FLAIR, axial T2 fast spin echo with fat saturation, axial T2* GRE, axial T2 FLAIR, diffusion and ADC map. Comparison: None Findings: The size, contour, and configuration of the sulci, ventricles, and basal cisterns appear normal. Lema-white differentiation is normal. There is no restricted diffusion. There is no mass effect, midline shift, edema, or hemorrhage. There are no abnormal extra-axial or intra-axial fluid collections. The corpus callosum is unremarkable. The brainstem and cerebellum are unremarkable. The sella is unremarkable. Bone marrow signal within the visualized osseous structures appears age appropriate and unremarkable otherwise. There is mucosal thickening within some of the paranasal sinuses. Impression: No acute intracranial abnormalities. Sinusitis
--- NOTE | 2019-03-22 12:18 | Diagnostic Imaging Report ---
Indication: Neck Pain Findings: 3 views of the cervical spine were obtained. There is no acute fracture identified. Alignment is normal. The open-mouth odontoid view shows an intact dens and good alignment of the lateral masses with respect to the body of C2. There is no soft tissue swelling. There is mild vertebral endplate scalloping. There is some mild loss of height of the C6-7 disc. The bones are osteopenic. Impression: Negative cervical spine examination.
--- NOTE | 2019-03-22 12:18 | Diagnostic Imaging Report ---
Indication: Back pain Technique: MRI examination of the lumbar spine was performed in a 1.5 Darshana magnet. Sequences obtained include sagittal and axial T1 and T2 fast spin echo, and sagittal STIR. Comparison: none Findings: Bone marrow signal and alignment are normal. Conus medullaris is seen at about L1. No paraspinous or paravertebral fluid collections or edema identified. T12-L1: This level unremarkable. L1-2: There is a desiccation of the intervertebral disc. Mild concentric disc bulge demonstrated. Mild hypertrophied facets noted. No evidence of central spinal stenosis or neural foraminal stenosis. L2-3: Mild narrowing and desiccation of intervertebral disc demonstrated with a concentric disc bulge. There is a superimposed 4 mm posterior central disc protrusion indenting the anterior thecal sac. There is hypertrophy of the facets demonstrated. L3-4: Concentric disc bulge demonstrated at this level with narrowing and desiccation of the intervertebral disc. Hypertrophied facets demonstrated. There is no central canal stenosis. There is mild to moderate bilateral foraminal stenosis present. L4-5: Narrowing and desiccation and intervertebral disc demonstrated. Concentric disc bulge noted. Moderate hypertrophied facets demonstrated. There is narrowing of the lateral recess and moderate to severe bilateral foraminal stenosis. L5-S1: Disc height is normal with loss of central T2 signal or desiccation. Facet arthropathy noted at this level. There is a moderate to severe bilateral foraminal stenosis present. There is defect of the pars interarticularis at L5. Minimal anterolisthesis or grade 1 spondylolisthesis demonstrated. Hypertrophied facets noted. IMPRESSION: L5-S1: Moderate to severe bilateral foraminal stenosis. Facet arthropathy. L5 spondylolysis. Grade 1 spondylolisthesis L5 on S1. Mild disc disease. L4-5: Moderate to severe bilateral foraminal stenosis secondary to facet arthropathy and concentric disc bulge. L3-4: Concentric disc bulge. Mild to moderate bilateral foraminal stenosis. L2-3: Concentric disc bulge with superimposed 4 mm posterior disc protrusion. Facet arthropathy.
--- NOTE | 2019-03-22 12:27 | General Progress Note ---
Assessment/Plan Assessment/Plan: (1) Cervicalgia (2) Lumbago (3) Cervical and Lumbar DDD/ Spondylosis (4) Cervical and Lumbar Radiculopathy/ Herniated disc (5) H/O Lumbar surgery Patient to be continued on [place], Morphine and Neurontin. D/w Dr. Garces and he concurred. Subjective Date patient seen: Mar 22, 2019 Time patient seen: 12:15 - pm Allergies: Coded Allergies: No Known Allergies (Unverified , 03/17/19) Subjective REVIEW OF SYSTEMS: Denies rash, fever, chills, sweating, dizziness, drowsiness, blurred vision, sore throat, or change in weight. No shortness of breath or chest pain. No nausea, vomiting, diarrhea, blood in stool, or urine. No dysuria. He is complaining of neck and back pain. SUBJECTIVE: Patient is in bed with family at bedside. His pain has reduced to a moderate level using the Morphine 5 doses and [place] on dose in the last 24hrs. MRIs were reviewed with patient. Objective Last 24 Hour Vital Signs Date Time Temp Pulse Resp B/P (MAP) Pulse Ox O2 Delivery O2 Flow Rate FiO2 03/22/19 09:02 Room Air Room Air 03/22/19 08:54 138/70 03/22/19 08:53 76 138/70 03/22/19 08:53 76 138/70 03/22/19 08:00 99.0 81 19 138/73 (94) 95 03/22/19 05:52 143/68 03/22/19 04:00 97.4 74 19 153/73 (99) 98 03/22/19 00:00 97.5 80 19 135/72 (93) 96 03/21/19 21:01 133/67 03/21/19 21:00 Room Air Room Air 03/21/19 20:00 98.9 79 19 145/67 (93) 98 03/21/19 16:00 98.1 77 17 138/70 (92) 95 03/21/19 14:12 126/65 Intake and Output 03/21/19 03/22/19 19:00 07:00 Intake Total 555 ml 1080 ml Balance 555 ml 1080 ml Intake Oral 480 ml 480 ml IV Total 75 ml 600 ml # Voids 3 Height (Feet): 5 Height (Inches): 2.00 Weight (Pounds): 141 Objective PHYSICAL EXAMINATION: GENERAL: Alert, awake, and oriented. LUNGS: Decreased breath sounds bilaterally. HEART: S1 and S2 regular. ABDOMEN: Soft and nontender. EXTREMITIES: No cyanosis. No clubbing. No edema. Procedure: MRI C Spine no Contrast FINDINGS: Vertebral elements: 1-2 mm retrolisthesis of C5 on C6 and C6 on C7. No acute fracture. Discs: Multilevel disc desiccation with mild disc height loss at C67. Marrow signal: No marrow edema. Soft tissues: Trace prevertebral edema from the 3 to C5. Cord: No cord signal abnormality. C2-3: Unremarkable. C3-4: Mild left foraminal stenosis secondary to uncovertebral hypertrophy and facet arthrosis. Effacement of the ventral CSF space secondary to posterior disc osteophyte complex without causing spinal canal stenosis. C4-5: Mild left foraminal stenosis secondary to uncovertebral hypertrophy and facet arthrosis. Effacement of the ventral CSF space secondary to posterior disc osteophyte complex without causing spinal canal stenosis. C5-6: Severe left foraminal stenosis secondary to uncovertebral hypertrophy and facet arthrosis. Effacement of the ventral CSF space secondary to posterior disc osteophyte complex without causing spinal canal stenosis. C6-7: Severe bilateral foraminal stenosis secondary to uncovertebral hypertrophy and facet arthrosis. Mild spinal canal stenosis secondary to posterior disc osteophyte complex and ligament flavum redundancy. C7-T1: Mild left foraminal stenosis. No spinal canal stenosis. No facet arthrosis. IMPRESSION: 1. No acute fracture. 2. Trace prevertebral edema from C3-C5, cannot exclude anterior longitudinal ligament injury the setting of trauma. If there is no trauma, it may be degenerative in nature. 3. Multilevel degenerative disc disease most notable for left-sided foraminal stenosis throughout the cervical spine most severe from C5-C6 and bilaterally at C6-7. Mild spinal canal stenosis at C6-7. No cord signal abnormality. Procedure: MRI L Spine no Contrast Indication: Back pain Findings: Bone marrow signal and alignment are normal. Conus medullaris is seen at about L1. No paraspinous or paravertebral fluid collections or edema identified. T12-L1: This level unremarkable. L1-2: There is a desiccation of the intervertebral disc. Mild concentric disc bulge demonstrated. Mild hypertrophied facets noted. No evidence of central spinal stenosis or neural foraminal stenosis. L2-3: Mild narrowing and desiccation of intervertebral disc demonstrated with a concentric disc bulge. There is a superimposed 4 mm posterior central disc protrusion indenting the anterior thecal sac. There is hypertrophy of the facets demonstrated. L3-4: Concentric disc bulge demonstrated at this level with narrowing and desiccation of the intervertebral disc. Hypertrophied facets demonstrated. There is no central canal stenosis. There is mild to moderate bilateral foraminal stenosis present. L4-5: Narrowing and desiccation and intervertebral disc demonstrated. Concentric disc bulge noted. Moderate hypertrophied facets demonstrated. There is narrowing of the lateral recess and moderate to severe bilateral foraminal stenosis. L5-S1: Disc height is normal with loss of central T2 signal or desiccation. Facet arthropathy noted at this level. There is a moderate to severe bilateral foraminal stenosis present. There is defect of the pars interarticularis at L5. Minimal anterolisthesis or grade 1 spondylolisthesis demonstrated. Hypertrophied facets noted. IMPRESSION: L5-S1: Moderate to severe bilateral foraminal stenosis. Facet arthropathy. L5 spondylolysis. Grade 1 spondylolisthesis L5 on S1. Mild disc disease. L4-5: Moderate to severe bilateral foraminal stenosis secondary to facet arthropathy and concentric disc bulge. L3-4: Concentric disc bulge. Mild to moderate bilateral foraminal stenosis. L2-3: Concentric disc bulge with superimposed 4 mm posterior disc protrusion. Facet arthropathy. Chilo Mulligan Mar 22, 2019 12:27
--- NOTE | 2019-03-22 12:42 | NUR ---
FIXTURE MAKERLONG TERM CARE PHARMACIST 03/21/2019 SI: HYPERTENSION URGENCY T 98.9 HR 79 RR 19 B/P 145/67 SATS 98% ON RA BUN 23 CR 1.5 GLU 115 IS: LOVENOX SUBC PEPCID APRESOLINE MED/SURG STATUS 03/22/2019 SI: HYPERTENSION URGENCY T 97.5 HR 80 RR 19 B/P 135/72 SATS 96% ON RA NO LABS TODAY IS: LOVENOX SUBC PEPCID APRESOLINE MED/SURG STATUS
--- NOTE | 2019-03-22 13:47 | NUR ---
CHARGE NURSE NOTE: Spoke with Dr.De Jackman. He is planning to discharge pt tomorrow 03.23.19 after MRI of the chest resulted. Cane provided as ordered, given to pt's daughter.
--- NOTE | 2019-03-22 15:45 | Progress Note ---
DATE: 03/22/2019 SUBJECTIVE: The patient has bifrontal headache. 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 MRI scan of the cervical spine was significantly abnormal especially at C5-C6 and C6-C7 and has no cord compression and some edema from C3 through C5, which is probably degenerative in nature since he did not really had trauma. The patient's main pain is his neck pain. His chest pain is basically clear. He also has significant lower back pain. PHYSICAL EXAMINATION: VITAL SIGNS: Blood pressure is 138/70, pulse is 76, temperature is 99 degrees. NECK: He has posterior cervical tenderness, but the neck is supple. MENTAL STATUS EXAMINATION: His mental status is basically intact. There was no change from previous exam. CRANIAL NERVES: Cranial nerves II through XII reveal no change. MUSCLE EXAMINATION: Muscle bulk and tone are normal. Strength is 5/5 proximally and distally except for what appears to be weakness in the muscles by the right ulnar nerve below the elbow. Reflexes are 0 in the upper and lower extremities. Downgoing toe on the right and indefinite toe downgoing on the left side. COORDINATION: [id number], [id number] testing was intact. GAIT AND STATION: Not tested. IMPRESSION: I think the patient probably has a tension type headache disorder, less likely cervicogenic headache. I am going to increase his Neurontin to 200 mg t.i.d. He can be discharged, but will need a neurologic followup by myself or by a neurologist from his primary physician. PLAN: 1. Neurontin 200 mg p.o. t.i.d. 2. Neurologic followup for headaches. Nicola Blackman MD DR: WENCESLAO JOB#: [id number] CC: CHANDRA
--- NOTE | 2019-03-22 18:30 | NUR ---
NURSE NOTES: Patient resting,no complaints of pain at this time.Call light within reach.
--- NOTE | 2019-03-22 19:30 | Consultation ---
DATE OF CONSULTATION: 03/22/2019 ADDENDUM PLAN: Orthopedic consultation for his neck. Nicola Blackman MD DR: Hui JOB#: [id number] CC:
--- NOTE | 2019-03-22 19:51 | NUR ---
HAND-OFF: Report given to Lisa HAYWOOD.
[2019-03-22] MEDS: Atorvastatin 80mg tab ORAL SCH (21:21)
[2019-03-23] VITALS: BP 130/64
[2019-03-23] MEDS: HydrALAZINE 50mg tab ORAL SCH ×3 (05:51→22:19)
[2019-03-23] MEDS: NovoLOG Insulin Flexpen SUBQ SCH ×4 (06:17→20:55)
--- NOTE | 2019-03-23 06:35 | NUR ---
NURSE NOTES: Left message for Dr Crawley regarding pt having diarrhea yesterday during the day. Pt without any diarrhea since.
--- NOTE | 2019-03-23 07:20 | NUR ---
HAND-OFF: Report given to YOBANY Lino. left voicemail for Dr Crawley regarding pt diarrhea.
--- NOTE | 2019-03-23 07:30 | NUR ---
NURSE NOTES: Received pt from YOBANY OCAMPO. pt is awake A&O X4. Pt is in RA, no SOB or acute respiratory distress noted. Pt has intact iv access R wrist SL. No complain of pain at this moment. ESPERANZA from RADIOLOGY called and stated they don't have chest MRI and Dr JANG has to call RADIOLOGY and stated the reason of chest MRI, RN called Dr JANG and left massage. waiting to call back. all needs attended, bed is locked and is in the lowest position, call light within easy reach. will continue to monitor.
[2019-03-23 08:00] VITALS: BP 145/73
[2019-03-23] MEDS: Aspirin Baby 81mg ORAL SCH (08:40)
[2019-03-23] MEDS: Metoprolol Succinate XL 100mg tab ORAL SCH (08:40)
[2019-03-23] MEDS: Lisinopril 10mg tab ORAL SCH (08:40)
[2019-03-23] MEDS: Enoxaparin 40mg Inj SUBQ SCH (08:45)
--- NOTE | 2019-03-23 08:48 | General Progress Note ---
Assessment/Plan Assessment/Plan: (1) Cervicalgia (2) Lumbago (3) Cervical and Lumbar DDD/ Spondylosis (4) Cervical and Lumbar Radiculopathy/ Herniated disc (5) H/O Lumbar surgery Patient to be continued on [place], Morphine and Neurontin. D/w Dr. Garces and he concurred. Subjective Date patient seen: Mar 23, 2019 Time patient seen: 08:00 - am Allergies: Coded Allergies: No Known Allergies (Unverified , 03/17/19) Subjective REVIEW OF SYSTEMS: Denies rash, fever, chills, sweating, dizziness, drowsiness, blurred vision, sore throat, or change in weight. No shortness of breath or chest pain. No nausea, vomiting, diarrhea, blood in stool, or urine. No dysuria. SUBJECTIVE: Patient is in bed and denies pain at this time. No new complaints at this time Objective Last 24 Hour Vital Signs Date Time Temp Pulse Resp B/P (MAP) Pulse Ox O2 Delivery O2 Flow Rate FiO2 03/23/19 08:40 81 145/73 03/23/19 08:40 145/73 03/23/19 08:39 81 145/73 03/23/19 08:00 97.8 81 19 145/73 (97) 93 03/23/19 05:51 136/71 03/23/19 00:00 98.5 78 18 130/64 (86) 96 03/22/19 21:22 137/69 03/22/19 21:00 Room Air Room Air 03/22/19 20:00 98.4 69 19 130/68 (88) 96 03/22/19 17:39 67 131/65 (87) 03/22/19 16:00 99.5 116 18 148/98 (115) 100 03/22/19 14:01 123/66 03/22/19 12:00 99.5 77 17 110/61 (77) 95 03/22/19 09:02 Room Air Room Air 03/22/19 08:54 138/70 03/22/19 08:53 76 138/70 03/22/19 08:53 76 138/70 Intake and Output 03/22/19 03/23/19 18:59 06:59 Intake Total 660 ml 240 ml Output Total 300 ml Balance 360 ml 240 ml Intake Oral 360 ml 240 ml IV Total 300 ml Output Urine Total 300 ml # Voids 4 Height (Feet): 5 Height (Inches): 2.00 Weight (Pounds): 141 Objective PHYSICAL EXAMINATION: GENERAL: Alert, awake, and oriented. LUNGS: Decreased breath sounds bilaterally. HEART: S1 and S2 regular. ABDOMEN: Soft and nontender. EXTREMITIES: No cyanosis. No clubbing. No edema. Chilo Mulligan Mar 23, 2019 08:48
--- NOTE | 2019-03-23 11:53 | Nephrology Progress Note ---
Assessment/Plan Assessment/Plan: ASSESSMENT AND PLAN: 1. Acute coronary syndrome, chest pain secondary to hypertensive urgency. - stress test negative. Resolved 2. Hypertensive urgency. The patient is noncompliant with medications. - adjusted po meds and BP at goal. Rx given 3. Diabetes mellitus. -low-carbohydrate diet with insulin and metformin. 4. Hyperlipidemia. The patient is on Lipitor. 5. Headache - secondary to hypertensive urgency and DJD neck -neck and headache pain, back and toe pain - pain mgmt assistance appreciated - F/U neuro 1 week - f/u PCP 1 week for Ortho referral - DC after aortic dissection for chest pain ruled out 6. DVT prophylaxis with Lovenox. 7. GI prophylaxis with famotidine. 8. TARYN- monitor Cr as increased post increase in Lisinopril - Cr down to 1.5, continue IVFs as CT requires IV contrast and benefits outweigh risk. Minimize TARYN with IVFs DC post CT Chest Subjective Date patient seen: Mar 23, 2019 Time patient seen: 11:50 ROS Limited/Unobtainable: No Allergies: Coded Allergies: No Known Allergies (Unverified , 03/17/19) Subjective Patient says chronic pain in neck, improved. Poss DC soon Objective Last 24 Hour Vital Signs Date Time Temp Pulse Resp B/P (MAP) Pulse Ox O2 Delivery O2 Flow Rate FiO2 03/23/19 09:00 Room Air Room Air 03/23/19 08:40 81 145/73 03/23/19 08:40 145/73 03/23/19 08:39 81 145/73 03/23/19 08:00 97.8 81 19 145/73 (97) 93 03/23/19 05:51 136/71 03/23/19 00:00 98.5 78 18 130/64 (86) 96 03/22/19 21:22 137/69 03/22/19 21:00 Room Air Room Air 03/22/19 20:00 98.4 69 19 130/68 (88) 96 03/22/19 17:39 67 131/65 (87) 03/22/19 16:00 99.5 116 18 148/98 (115) 100 03/22/19 14:01 123/66 03/22/19 12:00 99.5 77 17 110/61 (77) 95 Intake and Output 03/22/19 03/23/19 18:59 06:59 Intake Total 660 ml 240 ml Output Total 300 ml Balance 360 ml 240 ml Intake Oral 360 ml 240 ml IV Total 300 ml Output Urine Total 300 ml # Voids 4 Height (Feet): 5 Height (Inches): 2.00 Weight (Pounds): 141 General Appearance: no apparent distress EENT: normal ENT inspection Neck: normal alignment, supple Cardiovascular: normal rate, regular rhythm Respiratory/Chest: lungs clear, normal breath sounds Abdomen: non tender, soft Edema: no edema noted Arm (L), no edema noted Arm (R), no edema noted Leg (L), no edema noted Leg (R), no edema noted Pedal (L), no edema noted Pedal (R), no edema noted Generalized Esdras Crawley MD Mar 23, 2019 11:53
[2019-03-23 12:00] VITALS: BP 117/65
--- NOTE | 2019-03-23 12:00 | NUR ---
NURSE NOTES: pt signed consent form for contrast, Dr MILLAN notified
--- NOTE | 2019-03-23 12:47 | NUR ---
NURSE NOTES: pt is awake and stable, left unit for CT.
--- NOTE | 2019-03-23 13:13 | Cardiac Electrophysiology PN ---
Assessment/Plan Assessment/Plan 1. Chest pain with history of prior stent placement. Ruled out for myocardial infarction. His EKG shows sinus rhythm with right bundle-branch block and left anterior fascicular block. Keep the patient on Lipitor 80 mg daily, aspirin 81 mg daily, and Toprol 100 mg daily. Nuclear stress test showed no ischemia. Scheduled for chest CT angio to R/O dissection 2. Essential hypertension, on Toprol-XL 100 mg daily, lisinopril to 10 mg b.i.d. and p.r.n. clonidine Echo EF 65% 3. Diabetes. 4. Hyperlipidemia, on Lipitor. 5. Generalized body ache. FU by pain management JOSIAH RN and Dr Crawley Subjective Subjective No CP or SOB. Scheduled for chest CT angio to R/O dissection Objective Last 24 Hour Vital Signs Date Time Temp Pulse Resp B/P (MAP) Pulse Ox O2 Delivery O2 Flow Rate FiO2 03/23/19 12:00 99.7 80 19 117/65 (82) 95 03/23/19 09:00 Room Air Room Air 03/23/19 08:40 81 145/73 03/23/19 08:40 145/73 03/23/19 08:39 81 145/73 03/23/19 08:00 97.8 81 19 145/73 (97) 93 03/23/19 05:51 136/71 03/23/19 00:00 98.5 78 18 130/64 (86) 96 03/22/19 21:22 137/69 03/22/19 21:00 Room Air Room Air 03/22/19 20:00 98.4 69 19 130/68 (88) 96 03/22/19 17:39 67 131/65 (87) 03/22/19 16:00 99.5 116 18 148/98 (115) 100 03/22/19 14:01 123/66 Intake and Output 03/22/19 03/23/19 19:00 07:00 Intake Total 660 ml 240 ml Output Total 300 ml Balance 360 ml 240 ml Intake Oral 360 ml 240 ml IV Total 300 ml Output Urine Total 300 ml # Voids 4 Objective HEAD AND NECK: No JVD. LUNGS: Clear. CARDIOVASCULAR: Regular S1 and S2 with no gallop or murmur. ABDOMEN: Soft. EXTREMITIES: No pitting edema. Steven Garces MD Mar 23, 2019 13:13
--- NOTE | 2019-03-23 13:39 | NUR ---
*-* INSURANCE *-* ALL CLINICALS AND REVIEWS HAVE BEEN FAXED TO: [place] Ref#[id number] CM: Beverly Benton#[phone] ext [phone] fax#[phone]
--- NOTE | 2019-03-23 14:50 | Diagnostic Imaging Report ---
Indication: Chest pain Technique: Continuous helical transaxial imaging of the chest was obtained from the thoracic inlet to the upper abdomen during rapid intravenous contrast administration. Arterial phase of enhancement obtained. Coronal 2-D reformats were also obtained and maximum intensity projection images in multiple planes. Study obtained in a Siemens sensation [address] Automatic Exposure Control was utilized. Total Dose length Product (DLP): mGycm CT Dose Index Volume (CTDIvol): mGy Comparison: None Findings: The pulmonary artery is well opacified and shows no filling defects. There is no adenopathy, pleural or pericardial effusions are identified. There is no aortic dissection or aneurysm identified within the chest. The lung bases demonstrate patchy groundglass opacities likely mild atelectasis. There is a small hiatal hernia.. Visualized part of the upper abdomen is unremarkable. There is a small cyst suspected in the right kidney. IMPRESSION: No evidence of pulmonary embolus, aortic dissection or aneurysm. Patchy basilar groundglass opacities likely atelectasis. The CT scanner at [facility] is accredited by the [employer] and the scans are performed using dose optimization techniques as appropriate to a performed exam including Automatic Exposure control.
[2019-03-23 16:00] VITALS: BP 135/64
--- NOTE | 2019-03-23 16:20 | NUR ---
NURSE NOTES: Dr JANG notified about CT result, stated hydrate pt till tomorrow for contrast and after lab result tomorrow morning may be D/C Pt. noted and carried out. will continue to monitor.
[2019-03-23] MEDS: Morphine Sulfate 2mg/ml Inj(IV/IM USE ONLY) IVP PRN ×2 (17:04→22:25)
--- NOTE | 2019-03-23 19:28 | NUR ---
HAND-OFF: Report given to ANN HAYWOOD.Pt is awake and stable.
--- NOTE | 2019-03-23 19:43 | NUR ---
NURSE NOTES: Received patient in bed, asleep, no acute distress noted, IV site is clean dry and intact, call light is within reach, bed is lowered, locked and alarm is on. Will continue to monitor for comfort and safety.
[2019-03-23 20:00] VITALS: BP 121/89
[2019-03-23] MEDS: Atorvastatin 80mg tab ORAL SCH (20:29)
[2019-03-24] VITALS: BP 131/73
[2019-03-24 04:50] VITALS: BP 134/75
[2019-03-24] MEDS: Morphine Sulfate 2mg/ml Inj(IV/IM USE ONLY) IVP PRN (04:58)
[2019-03-24] MEDS: HydrALAZINE 50mg tab ORAL SCH (05:46)
[2019-03-24] MEDS: NovoLOG Insulin Flexpen SUBQ SCH ×2 (05:48→12:09)
--- NOTE | 2019-03-24 07:04 | NUR ---
HAND-OFF: Report given to Jasvir HAYWOOD.
[2019-03-24 07:15] LABS: ANION GAP 4 mmol/L (5-15); CALCIUM 7.8 MG/DL (8.5-10.1); CARBON DIOXIDE 30 MMOL/L (21-32); CHLORIDE 108 MMOL/L (98-107); CREATININE 1.6 MG/DL (0.55-1.30); POTASSIUM 4.3 MMOL/L (3.5-5.1); SODIUM 141 MMOL/L (136-145)
--- NOTE | 2019-03-24 07:40 | NUR ---
NURSE NOTES: Patient awake, alert x4, [place] speaking; on room air, no sing of distress and shortness of breath; IV Right-Wrist 22G NS 60cc running; urinal within reach; side rails up x2, breaks engaged, bed at lowest position; call light within reach; will keep monitoring.
[2019-03-24 07:42] LABS: BLOOD UREA NITROGEN 21 mg/dL (7-18)
[2019-03-24 08:17] VITALS: BP 130/59
--- NOTE | 2019-03-24 08:54 | General Progress Note ---
Assessment/Plan Assessment/Plan: (1) Cervicalgia (2) Lumbago (3) Cervical and Lumbar DDD/ Spondylosis (4) Cervical and Lumbar Radiculopathy/ Herniated disc (5) H/O Lumbar surgery Patient to be continued on [place], Morphine and Neurontin. D/w Dr. Garces and he concurred. Subjective Date patient seen: Mar 24, 2019 Time patient seen: 08:00 - am Allergies: Coded Allergies: No Known Allergies (Unverified , 03/17/19) Subjective REVIEW OF SYSTEMS: Denies rash, fever, chills, sweating, dizziness, drowsiness, blurred vision, sore throat, or change in weight. No shortness of breath or chest pain. No nausea, vomiting, diarrhea, blood in stool, or urine. No dysuria. SUBJECTIVE: Patient showing no signs of pain or distress. Has no new complaints at this time. Objective Last 24 Hour Vital Signs Date Time Temp Pulse Resp B/P (MAP) Pulse Ox O2 Delivery O2 Flow Rate FiO2 03/24/19 08:19 Room Air Room Air 03/24/19 08:17 97.8 75 16 130/59 (82) 95 03/24/19 05:46 133/74 03/24/19 05:32 97.8 03/24/19 04:50 97.8 72 18 134/75 (94) 95 03/24/19 00:00 98.2 71 17 131/73 (92) 97 03/23/19 22:19 126/78 03/23/19 21:30 Room Air Room Air 03/23/19 20:00 98.7 74 19 121/89 (100) 96 03/23/19 16:00 98.8 74 18 135/64 (87) 95 03/23/19 14:07 117/65 03/23/19 12:00 99.7 80 19 117/65 (82) 95 03/23/19 09:00 Room Air Room Air Intake and Output 03/23/19 03/24/19 18:59 06:59 Intake Total 1650 ml Balance 1650 ml IV Total 750 ml Other 900 ml Laboratory Tests 03/24/19 05:50: Sodium Level 141, Potassium Level 4.3, Chloride Level 108H, Carbon Dioxide Level 30, Anion Gap 4L, Blood Urea Nitrogen 21H, Creatinine 1.6H, Estimat Glomerular Filtration Rate 44.5, Glucose Level 122H, Calcium Level 7.8L Height (Feet): 5 Height (Inches): 2.00 Weight (Pounds): 141 Objective PHYSICAL EXAMINATION: GENERAL: Alert, awake, and oriented. LUNGS: Decreased breath sounds bilaterally. HEART: S1 and S2 regular. ABDOMEN: Soft and nontender. EXTREMITIES: No cyanosis. No clubbing. No edema. Chilo Mulligan Mar 24, 2019 08:54
[2019-03-24] MEDS: Metoprolol Succinate XL 100mg tab ORAL SCH (09:01)
[2019-03-24] MEDS: Aspirin Baby 81mg ORAL SCH (09:02)
[2019-03-24] MEDS: Enoxaparin 40mg Inj SUBQ SCH (09:02)
[2019-03-24] MEDS: Lisinopril 10mg tab ORAL SCH (09:02)
[2019-03-24 12:00] VITALS: BP 140/64
--- NOTE | 2019-03-24 12:02 | Cardiac Electrophysiology PN ---
Assessment/Plan Assessment/Plan 1. Chest pain with history of prior stent placement. Ruled out for myocardial infarction. His EKG shows sinus rhythm with right bundle-branch block and left anterior fascicular block. Keep the patient on Lipitor 80 mg daily, aspirin 81 mg daily, and Toprol 100 mg daily. Nuclear stress test showed no ischemia. Chest CT angio no PE or dissection 2. Essential hypertension, on Toprol-XL 100 mg daily, lisinopril to 10 mg b.i.d. and p.r.n. clonidine Echo EF 65% 3. Diabetes. 4. Hyperlipidemia, on Lipitor. 5. Generalized body ache. FU by pain management JOSIAH RN and Dr Crawley OK to DC Subjective Subjective No CP or SOB. Chest CT angio shoed no PE or Aortic aneurysm or dissection. DC in progress Objective Last 24 Hour Vital Signs Date Time Temp Pulse Resp B/P (MAP) Pulse Ox O2 Delivery O2 Flow Rate FiO2 03/24/19 09:02 130/59 03/24/19 09:02 75 130/59 03/24/19 09:01 75 130/59 03/24/19 08:19 Room Air Room Air 03/24/19 08:17 97.8 75 16 130/59 (82) 95 03/24/19 05:46 133/74 03/24/19 05:32 97.8 03/24/19 04:50 97.8 72 18 134/75 (94) 95 03/24/19 00:00 98.2 71 17 131/73 (92) 97 03/23/19 22:19 126/78 03/23/19 21:30 Room Air Room Air 03/23/19 20:00 98.7 74 19 121/89 (100) 96 03/23/19 16:00 98.8 74 18 135/64 (87) 95 03/23/19 14:07 117/65 Intake and Output 03/23/19 03/24/19 18:59 06:59 Intake Total 1650 ml Balance 1650 ml IV Total 750 ml Other 900 ml Laboratory Tests Test 03/24/19 05:50 Sodium Level 141 MMOL/L (136-145) Potassium Level 4.3 MMOL/L (3.5-5.1) Chloride Level 108 MMOL/L (98-107) H Carbon Dioxide Level 30 MMOL/L (21-32) Anion Gap 4 mmol/L (5-15) L Blood Urea Nitrogen 21 mg/dL (7-18) H Creatinine 1.6 MG/DL (0.55-1.30) H Estimat Glomerular Filtration Rate 44.5 mL/min (>60) Glucose Level 122 MG/DL (74-106) H Calcium Level 7.8 MG/DL (8.5-10.1) L Objective HEAD AND NECK: No JVD. LUNGS: Clear. CARDIOVASCULAR: Regular S1 and S2 with no gallop or murmur. ABDOMEN: Soft. EXTREMITIES: No pitting edema. Steven Garces MD Mar 24, 2019 12:02
--- NOTE | 2019-03-24 14:00 | NUR ---
NURSE NOTES: Patient left the floor accompanied by his daughter; IV acces and name tag removed upon discharge; Medications delivered by Edilma abebe given to patient and also patient teaching regarding the medications given to patient; printed material regarding patient's visit, treatment, when to seek for medical help and follow up appointment provided to patient. Cane provided to patient. Patient is stable upon discharge. Belonging list signed by patient and primary nurse.
--- NOTE | 2019-03-25 08:17 | Discharge Summary ---
Discharge Summary Discharge Summary _ DATE OF ADMISSION: 03/17/2019 DATE OF DISCHARGE: 03/24/2019 DISCHARGED BY: dr. Levine REASON FOR ADMISSION: 58 years old male with past medical history of hypertension, hyperlipidemia, coronary artery disease, status post stent placement in 2008, diabetes mellitus , presented for evaluation of chest pain. Chest pain woke him from sleep. Chest pain reported as left-sided , nonradiating , associated with nausea , shortness of breath and diaphoresis , remaining constant since onset about 30 minutes ago. Upon evaluation patient had significantly elevated blood pressure 246/110 and was tachycardic with heart rate 109. Pulse oximetry was stable on room air. Troponin was negative. EKG revealed sinus rhythm with right bundle branch block. Chest x-ray revealed no acute cardiopulmonary pathology. Laboratory work-up revealed no leukocytosis, hemoglobin 11.8, hematocrit 34.3 , platelet count 288. Stable electrolytes. BUN 24, creatinine 1.3. Glucose 273. Stable LFT. Troponin was repeated, and was negative . Repeated EKG revealed normal sinus rhythm with right bundle branch block left axis deviation. In emergency department, patient received aspirin , Nitro-paste, metoprolol and morphine and subsequently admitted for further management. CONSULTANTS: class c driver Dr. Dawkins neurologist Dr. Blackman pain specialist Dr. Garces [facility] COURSE: Patient initially admitted to telemetry floor. Serial troponin were negative. Insurance Executive followed. Patient continued on antiplatelet therapy with aspirin and beta-eve. Echocardiogram revealed preserved ejection fraction of 60 to 65% with no evidence of left ventricular hypertrophy. No evidence of pericardial effusion. No evidence of wall motion abnormality. Right ventricular systolic pressure of 25. Patient subsequently undergone myocardial perfusion scan test, which was negative with calculated post stress ejection fraction of 67%. Blood pressure was managed with multiply antihypertensives, including long- acting beta-eve, DAILY inhibitor. Clonidine was board as needed for blood pressure spikes. Blood pressure stabilized; prior to discharge 130/59. Statin continued. CT of the chest revealed no evidence of pulmonary edema, aortic dissection or aneurysm. Patchy basilar ground-glass opacity , likely atelectasis. Supplemental oxygen titrated to keep pulse oximetry above 92%. Bronchodilator treatment provided as needed. Pulse oximetry was stable on room air. Neurologist followed due to headaches. Per neurologist, headaches were probably secondary to elevated blood pressure . Neurologist recommended continue with gabapentin and to undergo further imaging. -MRI of the cervical spine revealed no acute fracture. * Trace prevertebral edema from C3-C5, cannot exclude anterior longitudinal ligament injury the setting of trauma. If there is no trauma, it may be degenerative in nature. * Multilevel degenerative disc disease, most notable for left-sided foraminal stenosis throughout the cervical spine, most severe from C5 -C6 and bilaterally at C6-7. Mild spinal canal stenosis at C6-7. No cord signal abnormality. --MRI of the lumbar spine revealed : * L5-S1: Moderate to severe bilateral foraminal stenosis. Facet arthropathy. L5 spondylolysis. Grade 1 spondylolisthesis L5 on S1. Mild disc disease. * L4-5: Moderate to severe bilateral foraminal stenosis secondary to facet arthropathy and concentric disc bulge. * L3-4: Concentric disc bulge. Mild to moderate bilateral foraminal stenosis. * L2-3: Concentric disc bulge with superimposed 4 mm posterior disc protrusion. Facet arthropathy. -Cervical spine x-ray was negative. -MRI of the brain revealed no acute intracranial abnormalities. Neurologist reviewed all imaging. According to neurologist, patient most probably had tension type headache disorder and less likely cervicogenic headache. Neurontin was uptitrated to 200 mg 3 times daily. Neurologist recommended outpatient follow-up with neurologist. Patient was working with physical therapist. Fall precautions maintained. Patient clinically stabilized and was ready for discharge home. FINAL DIAGNOSES: Chest pain, likely secondary to hypertensive urgency -resolved Hypertensive urgency-resolved Essential hypertension Diabetes mellitus Hyperlipidemia Headache , probably tension type headache Sensorimotor neuropathy, secondary to diabetes L5-S1 radiculopathy on the right , secondary to disc herniation Visual field loss OD on the right, secondary to retinal hemorrhage , probably from diabetes Diffuse myofascial pain likely related to hypertension Cervical and lumbar DDD/spondylosis Cervical and lumbar radiculopathy/herniated disc History of lumbar surgery DISCHARGE MEDICATIONS: See Medication Reconciliation list. DISCHARGE INSTRUCTIONS: Patient was discharged home. Follow-up with a primary care provider in 1 week. I have been assigned to dictate discharge summary for this account. I was not involved in the patient's management. Nilda Rosales NP Mar 25, 2019 08:17
== END 2019-03-24 12:45 | disposition home or self-care (01) | DRG 198 ==
LOC: EMR 05:01 → 2E 05:55 → EDBEDREQ 07:10 → 2E 08:00 → 4E 03-20 16:01
DX: I24.9 Acute ischemic heart disease, unspecified (principal); I16.0 Hypertensive urgency; Z91.14 Patient's other noncompliance with medication regimen; Z79.4 Long term (current) use of insulin; E78.5 Hyperlipidemia, unspecified; I25.10 Atherosclerotic heart disease of native coronary artery without angina pectoris; Z95.5 Presence of coronary angioplasty implant and graft; E11.40 Type 2 diabetes mellitus with diabetic neuropathy, unspecified; E11.319 Type 2 diabetes mellitus with unspecified diabetic retinopathy without macular edema; H35.61 Retinal hemorrhage, right eye; M51.17 Intervertebral disc disorders with radiculopathy, lumbosacral region; I45.2 Bifascicular block; M54.2 Cervicalgia; Z89.021 Acquired absence of right finger(s)
CPT/HCPCS: 36415; 70450; 70551; 71045; 71275; 72040; 72141; 72148; 78452; 80048; 80053; 82962; 83735; 84100; 84484; 85025; 87081; 93005; 93017; 93306; 96374; 96375; 99285; J1815; J2405; J2785